=== PATIENT | female | born 1935 | race Caucasian/White ===

== ENCOUNTER 2017-11-06 19:10 | Inpatient (IN) | payer MEDICARE ==
[2017-11-06] VITALS (8 sets, daily range): BP systolic 113–153; BP diastolic 61–97
[~2017-11-06] VITALS: Ht 165.1 cm; Wt 91.6 kg
[~2017-11-06 19:10] MED LIST: ASPIRIN EC81 MG PO; IBUPROFEN400 MG PO; PRILOSEC20 MG; ZOLOFT50 MG PO
[2017-11-06] MEDS: IPRATROPIUM BROMIDE 0.02% 2.5 ML NEB NEB SCH (19:20)
[2017-11-06] MEDS: ALBUTEROL SULF 0.083% NEB SOLN 3 ML NEB NEB SCH ×2 (19:20→23:25)
[2017-11-06] MEDS ORDERED: ALBUTEROL SULF 0.083% NEB SOLN 3 ML NEB ONE (19:25)
[2017-11-06] MEDS ORDERED: IPRATROPIUM BROMIDE 0.02% 2.5 ML NEB ONE (19:25)
[2017-11-06 19:36] LABS: BASOPHILS # (AUTO) 0.1 (0.0-0.1); BASOPHILS % 0.5 % (0.0-1.0); EOSINOPHILS # (AUTO) 0.2 (0.0-0.4); EOSINOPHILS % 1.7 % (0.0-6.0); HEMOGLOBIN 10.6 g/dL (12.0-16.0); LYMPHOCYTES # (AUTO) 1.1 (1.0-3.2); LYMPHOCYTES % 9.8 % (18.0-39.1); MEAN CORPUSCULAR HEMOGLOBIN 30.6 pg (28-32); MEAN CORPUSCULAR HGB CONC 33.1 g/dL (31-35); MEAN CORPUSCULAR VOLUME 92.5 fL (81-99); MONOCYTES # (AUTO) 0.9 (0.2-0.8); MONOCYTES % 7.8 % (4.4-11.3); NEUTROPHILS # (AUTO) 8.8 (2.1-6.9); NEUTROPHILS % 79.6 % (38.7-80.0); PLATELET COUNT 405 x10e3/uL (140-360); RED BLOOD COUNT 3.46 x10e6/uL (3.6-5.1); RED CELL DISTRIBUTION WIDTH 12.8 % (11.7-14.4)
[2017-11-06 19:55] LABS: ALANINE AMINOTRANSFERASE 20 IU/L (0-55); ALBUMIN 3.2 g/dL (3.5-5.0); ALBUMIN/GLOBULIN RATIO 0.7 (0.8-2.0); ALKALINE PHOSPHATASE 85 IU/L (40-150); ANION GAP 18.1 mmol/L (8-16); BLOOD UREA NITROGEN 6 mg/dL (7-26); BUN/CREATININE RATIO 8 (6-25); CALCIUM 9.9 mg/dL (8.4-10.2); CARBON DIOXIDE 21 mmol/L (22-29); CHLORIDE 95 mmol/L (98-107); CREATININE, SERUM 0.75 mg/dL (0.57-1.11); EST GLOMERULAR FILTRATION RATE > 60 ML/MIN (60-); GLUCOSE 108 mg/dL (74-118); POTASSIUM 3.1 mmol/L (3.5-5.1); SODIUM 131 mmol/L (136-145)
--- NOTE | 2017-11-06 20:03 | Diagnostic Imaging Report ---
EXAM: CHEST SINGLE (PORTABLE), AP 1 view INDICATION: Shortness of breath COMPARISON: None FINDINGS: LINES/TUBES: None LUNGS: Diffuse bilateral dense consolidations, most prominent in the right upper lung. PLEURA: No effusions or pneumothorax. HEART AND MEDIASTINUM: The heart is within normal size limits. Prominence of the bilateral martin could be due to lymphadenopathy or enlarged pulmonary vessels. BONES AND SOFT TISSUES: No acute findings. IMPRESSION: Findings most likely represent multifocal pneumonia, largest consolidation is in the right upper lung. Signed by: Dr. Deysi Riley M.D. on 11/06/2017 7:59 PM
[2017-11-06] MEDS ORDERED: CEFTRIAXONE SOD 1 GM VIAL IV SCH (20:15)
[2017-11-06 20:34] LABS: CREATINE KINASE MB 5.6 ng/mL (0-5.0)
[2017-11-06] MEDS ORDERED: HEPARIN SOD (PORCINE) 5,000 UNIT/ML VIAL IV ONE (20:45)
[2017-11-06] MEDS ORDERED: ASPIRIN 81 MG CHEW TAB PO ONE (20:45)
[2017-11-06 20:46] LABS: INR 1.37; PROTHROMBIN TIME 15.9 seconds (11.9-14.5)
[2017-11-06] MEDS ORDERED: ASPIRIN 81 MG CHEW TAB PO STA (20:48)
[2017-11-06 20:52] LABS: BILIRUBIN,URINE 1+ (NEGATIVE); CLARITY,URINE SL CLOUDY (CLEAR); COLOR,URINE ORANGE (YELLOW); KETONES,URINE 1+ (NEGATIVE); LEUKOCYTE ESTERASE ,URINE NEGATIVE (NEGATIVE); NITRITE,URINE NEGATIVE (NEGATIVE); PROTEIN,URINE DIPSTICK 2+ (NEGATIVE); URINE UROBILINOGEN 0.2 mg/dL (0.2 - 1)
[2017-11-06] MEDS: AZITHROMYCIN 500MG/NS 250 ML 250 ML IV SCH (20:57)
[2017-11-06] MEDS: PIPER-TAZ 3.375 GM 50 ML IV SCH (20:57)
[2017-11-06] MEDS ORDERED: KCL 20MEQ/.9 SOD CHL 1,000 ML IV ONE (21:00)
[2017-11-06 21:04] LABS: BACTERIA,URINE MODERATE /HPF; WBC,URINE (MAN) 0-5 /HPF (0-5)
[2017-11-06] MEDS: HEPARIN 25,000U/0.45% NS 250ML 800 UNIT in SODIUM CHLORIDE 0.9% 250ML 0 ML IV SCH (21:13)
[2017-11-07] VITALS (102 sets, daily range): BP systolic 72–181; BP diastolic 41–157
[2017-11-07] MEDS: IPRATROPIUM BROMIDE 0.02% 2.5 ML NEB NEB SCH ×4 (01:35→19:15)
[2017-11-07] MEDS: ALBUTEROL SULF 0.083% NEB SOLN 3 ML NEB NEB SCH ×7 (01:35→23:15)
[2017-11-07 03:20] LABS: BASOPHILS % 0.1 % (0.0-1.0); LYMPHOCYTES # (AUTO) 0.2 (1.0-3.2); LYMPHOCYTES % 2.4 % (18.0-39.1); MEAN CORPUSCULAR HEMOGLOBIN 31.2 pg (28-32); MEAN CORPUSCULAR HGB CONC 33.3 g/dL (31-35); MEAN CORPUSCULAR VOLUME 93.5 fL (81-99); MONOCYTES # (AUTO) 0.2 (0.2-0.8); MONOCYTES % 2.1 % (4.4-11.3); NEUTROPHILS # (AUTO) 8.3 (2.1-6.9); NEUTROPHILS % 94.7 % (38.7-80.0); PLATELET COUNT 311 x10e3/uL (140-360); RED BLOOD COUNT 3.21 x10e6/uL (3.6-5.1); RED CELL DISTRIBUTION WIDTH 12.8 % (11.7-14.4)
[2017-11-07 03:44] LABS: CREATINE KINASE MB 6.5 ng/mL (0-5.0)
[2017-11-07 04:00] LABS: ALANINE AMINOTRANSFERASE 19 IU/L (0-55); ALBUMIN 2.8 g/dL (3.5-5.0); ALBUMIN/GLOBULIN RATIO 0.7 (0.8-2.0); ALKALINE PHOSPHATASE 75 IU/L (40-150); ANION GAP 16.5 mmol/L (8-16); BLOOD UREA NITROGEN 8 mg/dL (7-26); BUN/CREATININE RATIO 10 (6-25); CALCIUM 9.3 mg/dL (8.4-10.2); CARBON DIOXIDE 20 mmol/L (22-29); CHLORIDE 99 mmol/L (98-107); EST GLOMERULAR FILTRATION RATE > 60 ML/MIN (60-); GLUCOSE 176 mg/dL (74-118); POTASSIUM 3.5 mmol/L (3.5-5.1); SODIUM 132 mmol/L (136-145)
[2017-11-07] MEDS: PIPER-TAZ 3.375 GM 50 ML IV SCH ×3 (05:38→21:15)
[2017-11-07] MEDS ORDERED: ACETAMINOPHEN 1000 MG/100 ML IV PRN (05:45)
[2017-11-07] MEDS ORDERED: MIDAZOLAM HCL 5 MG/ML VIAL ONE (06:46)
[2017-11-07] MEDS ORDERED: SODIUM CHLORIDE 0.9% 50ML 50 ML ONE (06:47)
[2017-11-07] MEDS: MIDAZOLAM HCL 25 MG in SODIUM CHLORIDE 0.9% 50ML 45 ML IV PRN ×2 (07:04→08:39)
--- NOTE | 2017-11-07 07:17 | Diagnostic Imaging Report ---
PROCEDURE:CHEST SINGLE (PORTABLE) TECHNIQUE:Portable AP chest INDICATION:Intubation COMPARISON:Patients [facility], , CHEST SINGLE (PORTABLE), 11/06/2017, 19:38. FINDINGS: See conclusion. CONCLUSION: 1. Endotracheal tube tip about 4.7 cm from the linda. 2. Progressive diffuse air space opacities in keeping with worsening pneumonia and/or pulmonary edema. 3. A sizable pleural effusion. 4. Stable cardiomediastinal silhouette, with normal heart size for technique. Dictated by: Ernie Paz M.D. on 11/07/2017 at 7:20 Electronically approved by: Ernie Paz M.D. on 11/07/2017 at 7:20
[2017-11-07] MEDS: FENTANYL CITRATE INJ 2,000 MCG in SODIUM CHLORIDE 0.9% 250ML 210 ML IV PRN (08:00)
[2017-11-07] MEDS: DEXMEDETOMIDINE HCL 200 MCG in SODIUM CHLORIDE 0.9% 50ML 48 ML IV PRN (08:00)
[2017-11-07 08:27] LABS: ABG HCO3 17 mmol/L (23-28); ABG PCO2 33 mmHg (41-51); ABG PH 7.33 (7.31-7.41); ABG PO2 200 mmHg (80-105)
[2017-11-07] MEDS ORDERED: ellipta (08:58)
[2017-11-07] MEDS ORDERED: CYMBALTA30 MG PO (08:58)
[2017-11-07] MEDS ORDERED: FOLIC ACID1 MG PO (08:58)
[2017-11-07] MEDS ORDERED: LOSARTAN POTASS25 MG PO (08:58)
[2017-11-07] MEDS ORDERED: MIRTAZAPINE15 MG PO (08:58)
[2017-11-07] MEDS ORDERED: GABAPENTIN300 MG PO (08:58)
[2017-11-07] MEDS ORDERED: PROAIR HFA INH8.5 GM IH (08:58)
[2017-11-07] MEDS ORDERED: HYDROXYCHLOROQ200 MG PO (08:58)
[2017-11-07] MEDS ORDERED: FLUOXETINE HCL20 MG PO (08:58)
[2017-11-07] MEDS ORDERED: TIZANIDINE HCL4 MG PO (08:58)
--- NOTE | 2017-11-07 09:03 | History and Physical ---
Patient of Dr. Davenport and Dr. Rose. Recently apparently transferring from Dr. Fuentes, but no new primary doctor. She has not yet seen one. She has a history of asthma. She has been ill for 7 days prior to admission according to her daughter. She has had a cough and increasing shortness of breath. Cough has been productive. This morning she had progressive respiratory failure with tachypnea and unable to tolerate BiPAP and was intubated. She has had hip surgery and knee surgery. Nonsmoker except for occasional cigarettes. 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 Born in [place]. ALLERGIES: NO KNOWN ALLERGIES. HOME MEDICATIONS: Have included aspirin, Motrin, Prilosec, and Zoloft. She is currently intubation for respiratory failure. She has a history of asthma and was using an MDI according to the daughter, though this is not on her home med list. She has seen Dr. Rose in the past for past shortness of breath, and told that her heart was normal. She has history of recent diarrhea, but no vomiting or aspiration. History of rheumatoid arthritis, history of peripheral neuropathy. Lives with her . Recently moved to her son's house apparently. PHYSICAL EXAMINATION GENERAL: A healthy white female intubated, sedated. VITALS: Temperature 96.7, pulse 91, respirations 20, blood pressure 105/61. HEENT: Head is normocephalic and atraumatic. NECK: Trachea midline. LUNGS: Bilateral rales and rhonchi. HEART: Regular rhythm. ABDOMEN: Nontender. EXTREMITIES: Arthritic changes noted and peripheral neuropathy. IMPRESSION: Severe CAP versus pulmonary edema. Evidence of myocardial infarction. Cardiology opinion is pending. Continue mechanical ventilator support. Empiric antibiotics. She is currently anticoagulated. Prophylactic Pepcid. White count on admission was 11.05 and platelets 405,000. Shift to the left. CPK-MB was 6.5. Troponin 0.888. Glucose 176. There is no history of diabetes. Job#: [id number] [place]
--- NOTE | 2017-11-07 10:25 | Diagnostic Imaging Report ---
PROCEDURE:CHEST XRAY LINE PLACEMENT TECHNIQUE:Portable AP chest INDICATION:Line placement COMPARISON:Patients [facility], DX, CHEST SINGLE (PORTABLE), 11/07/2017, 6:39. FINDINGS: See conclusion. CONCLUSION: 1. Right PICC terminating at the mid SVC. 2. Findings otherwise unchanged from 6:39 AM. Dictated by: Ernie Paz M.D. on 11/07/2017 at 10:28 Electronically approved by: Ernie Paz M.D. on 11/07/2017 at 10:28
[2017-11-07] MEDS: HYDROCORTISONE SOD SUCCINATE 100 MG VIAL IV SCH ×2 (11:11→18:49)
[2017-11-07] MEDS: FAMOTIDINE 20 MG/2 ML VIAL IV SCH ×2 (11:11→17:00)
[2017-11-07] MEDS: GABAPENTIN 300 MG CAP NG SCH ×2 (11:11→17:00)
[2017-11-07 12:27] LABS: CREATINE KINASE MB 9.2 ng/mL (0-5.0)
[2017-11-07 13:49] LABS: ABG PH 7.38 (7.31-7.41)
[2017-11-07 13:50] LABS: ABG HCO3 19 mmol/L (23-28); ABG PCO2 32 mmHg (41-51); ABG PO2 80 mmHg (80-105)
--- NOTE | 2017-11-07 13:57 | Consultation ---
DATE OF CONSULTATION: November 07, 2017 CARDIOLOGY CONSULT REQUESTING PHYSICIAN: Dr. Davenport. REASON FOR CONSULTATION: Elevated troponin. HISTORY OF PRESENT ILLNESS: This is an 82-year-old woman with history of asthma and rheumatoid arthritis who was admitted with worsening shortness of breath. All history is obtained from family and EMR as patient is currently intubated and sedated. Per the family, patient has been short of breath for approximately a week. This was associated with cough however the family indicates the patient was downplaying her symptoms. The family reports the patient has had worsening shortness of breath and cough for approximately the last week. They do not report any chest pain, palpitations or lightheadedness. There were no sick contacts noted. However the family does indicate patient has chronic lower extremity edema and they believe she may have had orthopnea and PND recently as well. Due to shortness of breath, EMS was called yesterday. She arrived to the ER on CPAP and was given 125 mg of Solu-Medrol. Due to worsening respiratory distress, the patient was intubated early this morning. Patient was noted to have elevated troponin in the ER for which cardiology is consulted. REVIEW OF SYSTEMS: Unable to obtain secondary to intubation and sedation. PAST MEDICAL HISTORY 1. Asthma. 2. Rheumatoid arthritis. 3. COPD. PAST SURGICAL HISTORY 1. Hip surgery. 2. Knee surgery. 3. Bladder suspension. ALLERGIES: PLEASE SEE EMR. MEDICATIONS: Please see medication reconciliation. SOCIAL HISTORY: No tobacco, alcohol, or illicit drugs. FAMILY HISTORY: Noncontributory to current illness. PHYSICAL EXAMINATION VITAL SIGNS: Temperature 96.7 degrees, pulse 83, respiratory rate 21, blood pressure 92/57. Oxygen saturation 97% on mechanical ventilation. GENERAL: Well-developed, well-nourished woman. No acute distress. Intubated and sedated. HEENT: Normocephalic, atraumatic. NECK: Supple. No thyromegaly or cervical lymphadenopathy. No carotid bruits. LUNGS: Clear to auscultation bilaterally. No wheeze or crackles. CARDIOVASCULAR: Normal rate, regular rhythm. No murmur. Normal S1, S2. ABDOMEN: Soft, nontender. EXTREMITIES: No edema. NEURO: Unable to assess secondary to sedation. LABS: WBC 8.72, hemoglobin 10, hematocrit 30, platelets 311. Sodium 132, potassium 3.5, chloride 99, CO2 20, BUN 8, creatinine 0.8. Troponin 1.707. CHEST X-RAY: Progressive diffuse airspace opacities in keeping with worsening pneumonia and/or pulmonary edema. Sizeable pleural effusion. Stable cardiomediastinal silhouette with normal heart size for technique. EKG: Sinus tachycardia with PACs and left bundle branch block. IMPRESSION 1. Acute respiratory failure currently on mechanical ventilation. 2. Community-acquired pneumonia versus pulmonary edema. 3. Elevated troponin. 4. History of rheumatoid arthritis. RECOMMENDATIONS: Trend cardiac enzymes. Continue heparin. Add aspirin. We will obtain an echocardiogram. Although patient had a normal nuclear stress test January of last year, given elevated troponin, she will need ischemic evaluation once she has recovered from her current illness. Given elevated BNP suspect there may be a component of volume overload explaining patient's respiratory symptoms. However, patient is currently hypotensive. If blood pressure is stable we can attempt trial of diuretics at that time. Thank you for this consult. We will continue to follow. Job#: [id number] DARLENE
[2017-11-07] MEDS ORDERED: ETOMIDATE 2 MG/ML 10 ML INJ IV ONE (17:41)
[2017-11-07] MEDS ORDERED: SUCCINYLCHOLINE CHLORIDE 20 MG/ML 10ML VIAL ONE (17:41)
[2017-11-07] MEDS: AZITHROMYCIN 500MG/NS 250 ML 250 ML IV SCH (21:15)
[2017-11-07] MEDS: HEPARIN 25,000U/0.45% NS 250ML 800 UNIT in SODIUM CHLORIDE 0.9% 250ML 0 ML IV SCH (23:03)
[2017-11-08] VITALS (95 sets, daily range): BP systolic 67–122; BP diastolic 36–89
[2017-11-08] MEDS ORDERED: SODIUM CHLORIDE 0.9% 1000ML 1,000 ML ONE (01:20)
[2017-11-08] MEDS: ALBUTEROL SULF 0.083% NEB SOLN 3 ML NEB NEB SCH ×5 (02:35→18:40)
[2017-11-08] MEDS: IPRATROPIUM BROMIDE 0.02% 2.5 ML NEB NEB SCH ×4 (02:35→18:40)
[2017-11-08] MEDS: HYDROCORTISONE SOD SUCCINATE 100 MG VIAL IV SCH ×3 (03:38→17:25)
[2017-11-08 03:44] LABS: BASOPHILS % 0.1 % (0.0-1.0); HEMATOCRIT 24.8 % (34.2-44.1); HEMOGLOBIN 8.1 g/dL (12.0-16.0); LYMPHOCYTES # (AUTO) 0.6 (1.0-3.2); MEAN CORPUSCULAR HEMOGLOBIN 30.9 pg (28-32); MEAN CORPUSCULAR HGB CONC 32.7 g/dL (31-35); MEAN CORPUSCULAR VOLUME 94.7 fL (81-99); MONOCYTES # (AUTO) 0.6 (0.2-0.8); MONOCYTES % 4.8 % (4.4-11.3); NEUTROPHILS # (AUTO) 10.7 (2.1-6.9); NEUTROPHILS % 89.3 % (38.7-80.0); PLATELET COUNT 265 x10e3/uL (140-360); RED BLOOD COUNT 2.62 x10e6/uL (3.6-5.1); RED CELL DISTRIBUTION WIDTH 13.1 % (11.7-14.4)
[2017-11-08 04:16] LABS: ANION GAP 14.3 mmol/L (8-16); BLOOD UREA NITROGEN 21 mg/dL (7-26); BUN/CREATININE RATIO 25 (6-25); CALCIUM 8.4 mg/dL (8.4-10.2); CARBON DIOXIDE 19 mmol/L (22-29); CHLORIDE 104 mmol/L (98-107); CREATININE, SERUM 0.85 mg/dL (0.57-1.11); EST GLOMERULAR FILTRATION RATE > 60 ML/MIN (60-); GLUCOSE 114 mg/dL (74-118); POTASSIUM 3.3 mmol/L (3.5-5.1); SODIUM 134 mmol/L (136-145)
[2017-11-08] MEDS: PIPER-TAZ 3.375 GM 50 ML IV SCH ×3 (05:39→22:00)
[2017-11-08] MEDS ORDERED: SODIUM CHLORIDE 0.9% 250ML 250 ML ONE (05:44)
--- NOTE | 2017-11-08 06:39 | Diagnostic Imaging Report ---
CHEST SINGLE (PORTABLE), 11/08/2017 7:00 AM Technique: CHEST SINGLE (PORTABLE) Comparison: Previous day Clinical history: Pneumonia Findings: See Impression Impression: 1. Lines/Tubes: Stable ET tube 2.9 cm above the linda, right PICC near the cavoatrial junction. Newly visualized subdiaphragmatic NG tube. 2. Stable bilateral pulmonary opacities in keeping with history of pneumonia. Possible underlying effusions. Signed by: Dr Kathrine Kim MD on 11/08/2017 6:35 AM
[2017-11-08 09:23] LABS: CREATINE KINASE MB 6.2 ng/mL (0-5.0)
[2017-11-08 09:33] LABS: ABG HCO3 18 mmol/L (23-28); ABG PCO2 30 mmHg (41-51); ABG PH 7.39 (7.31-7.41); ABG PO2 71 mmHg (80-105)
[2017-11-08] MEDS: GABAPENTIN 300 MG CAP NG SCH ×2 (10:20→17:25)
[2017-11-08] MEDS: ASPIRIN 81 MG ENTERIC COATED PO SCH (10:20)
[2017-11-08] MEDS: MIDAZOLAM HCL 25 MG in SODIUM CHLORIDE 0.9% 50ML 45 ML IV PRN (10:20)
[2017-11-08] MEDS: FAMOTIDINE 20 MG/2 ML VIAL IV SCH ×2 (10:20→17:25)
--- NOTE | 2017-11-08 13:24 | Progress Note ---
DATE: November 08, 2017 CARDIOLOGY PROGRESS NOTE SUBJECTIVE: The patient is awake on sedation. She remains intubated. Denies chest pain or shortness of breath. OBJECTIVE VITAL SIGNS: Temperature 97.2 degrees, pulse 94, respiratory rate 26, blood pressure 110/55. Oxygen saturation 94% on mechanical ventilation. GENERAL: Well-developed, well-nourished woman. No acute distress. LUNGS: Clear to auscultation bilaterally. No wheeze or crackles. CARDIOVASCULAR: Normal rate, regular rhythm. No murmur. Normal S1, S2. ABDOMEN: Soft, nontender. EXTREMITIES: No edema. CARDIAC MEDICATIONS 1. Aspirin 81 mg p.o. daily. 2. Heparin drip. 3. Lasix 20 mg IV. 4. Baby aspirin 81 mg p.o. daily. LABS: WBC 11.93, hemoglobin 8.1, hematocrit 24.8, platelets 265. Sodium 134, potassium 3.3, chloride 104, CO2 19, BUN 21, creatinine 0.85. Troponin 0.617. TELEMETRY: Normal sinus rhythm. IMPRESSION 1. Acute respiratory failure currently on mechanical ventilation. 2. Community-acquired pneumonia versus pulmonary edema. 3. Rit-SG-anqyeqmsk myocardial infarction. 4. History of rheumatoid arthritis. RECOMMENDATIONS: Continue current cardiac medications. Echocardiogram has been done and is pending. She will need ischemic evaluation once she has recovered from her current illness and after she has been extubated. Trial of low-dose diuretics as the blood pressure has been stable. Antibiotics per primary service. Thank you for this consult. We will continue to follow. Job#: [id number]
[2017-11-08] MEDS ORDERED: SUCCINYLCHOLINE CHLORIDE 20 MG/ML 10ML VIAL ONE (15:26)
[2017-11-08] MEDS: FUROSEMIDE INJ 10 MG/ML 2 ML VIAL IV SCH (17:02)
[2017-11-08] MEDS: AZITHROMYCIN 500MG/NS 250 ML 250 ML IV SCH (20:15)
[2017-11-08] MEDS: HEPARIN 25,000U/0.45% NS 250ML 800 UNIT in SODIUM CHLORIDE 0.9% 250ML 0 ML IV SCH (20:45)
[2017-11-09] VITALS (95 sets, daily range): BP systolic 78–126; BP diastolic 42–79
[2017-11-09] MEDS: ALBUTEROL SULF 0.083% NEB SOLN 3 ML NEB NEB SCH ×5 (01:50→18:50)
[2017-11-09] MEDS: IPRATROPIUM BROMIDE 0.02% 2.5 ML NEB NEB SCH ×4 (01:50→18:50)
[2017-11-09] MEDS: HYDROCORTISONE SOD SUCCINATE 100 MG VIAL IV SCH ×3 (02:30→17:46)
[2017-11-09 03:00] LABS: ABG PCO2 39 mmHg (41-51); ABG PH 7.31 (7.31-7.41)
[2017-11-09 03:01] LABS: ABG HCO3 20 mmol/L (23-28); ABG PO2 45 mmHg (80-105)
[2017-11-09] MEDS ORDERED: ACETAMINOPHEN 1000 MG/100 ML IV PRN (05:00)
[2017-11-09] MEDS: PIPER-TAZ 3.375 GM 50 ML IV SCH ×3 (06:02→22:15)
[2017-11-09 06:07] LABS: BASOPHILS % 0.2 % (0.0-1.0); EOSINOPHILS % 0.3 % (0.0-6.0); HEMATOCRIT 23.4 % (34.2-44.1); HEMOGLOBIN 7.4 g/dL (12.0-16.0); LYMPHOCYTES # (AUTO) 0.2 (1.0-3.2); LYMPHOCYTES % 2.1 % (18.0-39.1); MEAN CORPUSCULAR HEMOGLOBIN 30.5 pg (28-32); MEAN CORPUSCULAR HGB CONC 31.6 g/dL (31-35); MEAN CORPUSCULAR VOLUME 96.3 fL (81-99); MONOCYTES # (AUTO) 0.3 (0.2-0.8); MONOCYTES % 2.7 % (4.4-11.3); NEUTROPHILS # (AUTO) 10.4 (2.1-6.9); NEUTROPHILS % 93.5 % (38.7-80.0); PLATELET COUNT 254 x10e3/uL (140-360); RED BLOOD COUNT 2.43 x10e6/uL (3.6-5.1); RED CELL DISTRIBUTION WIDTH 13.3 % (11.7-14.4)
--- NOTE | 2017-11-09 06:43 | Diagnostic Imaging Report ---
CHEST SINGLE (PORTABLE), 11/09/2017 5:00 AM Technique: CHEST SINGLE (PORTABLE) Comparison: Previous day Clinical history: Intubated Findings: See Impression Impression: 1. Lines/Tubes: Stable ET tube 3.3 cm above the linda, right PICC near the cavoatrial junction and subdiaphragmatic NG tube. 2. Stable extensive bilateral pulmonary opacities in keeping with history of pneumonia. No significant effusion appreciated. Signed by: Dr Kathrine Kim MD on 11/09/2017 6:39 AM
[2017-11-09 06:49] LABS: ALANINE AMINOTRANSFERASE 32 IU/L (0-55); ALBUMIN 2.3 g/dL (3.5-5.0); ALBUMIN/GLOBULIN RATIO 0.6 (0.8-2.0); ALKALINE PHOSPHATASE 72 IU/L (40-150); ANION GAP 12.9 mmol/L (8-16); BLOOD UREA NITROGEN 22 mg/dL (7-26); BUN/CREATININE RATIO 26 (6-25); CALCIUM 8.7 mg/dL (8.4-10.2); CARBON DIOXIDE 21 mmol/L (22-29); CHLORIDE 110 mmol/L (98-107); CREATININE, SERUM 0.85 mg/dL (0.57-1.11); EST GLOMERULAR FILTRATION RATE > 60 ML/MIN (60-); GLUCOSE 110 mg/dL (74-118); SODIUM 141 mmol/L (136-145)
[2017-11-09 06:51] LABS: POTASSIUM 2.9 mmol/L (3.5-5.1)
[2017-11-09 08:20] LABS: HYPOCHROMASIA SLIGHT; LYMPHOCYTES % (MANUAL) 2 % (19-48); MONOCYTES % (MANUAL) 1 % (3.4-9.0); NEUTROPHILS % (MANUAL) 97 % (40-74); PLATELET ESTIMATE ADEQUATE; PLATELET MORPHOLOGY COMMENT NORMAL; RBC MORPHOLOGY COMMENT NORMAL
[2017-11-09] MEDS ORDERED: POTASSIUM CHLORIDE 20 MEQ TAB CR PO PRN (09:00)
[2017-11-09] MEDS: ASPIRIN 81 MG ENTERIC COATED PO SCH (09:00)
[2017-11-09] MEDS: GABAPENTIN 300 MG CAP NG SCH ×2 (09:01→17:45)
[2017-11-09] MEDS: FAMOTIDINE 20 MG/2 ML VIAL IV SCH ×2 (09:01→17:45)
[2017-11-09] MEDS: FUROSEMIDE INJ 10 MG/ML 2 ML VIAL IV SCH ×2 (09:01→17:00)
[2017-11-09] MEDS: DEXTROSE 5%/0.9% SOD CHL 1,000 ML IV SCH ×2 (09:07→21:55)
[2017-11-09] MEDS: MIDAZOLAM HCL 25 MG in SODIUM CHLORIDE 0.9% 50ML 45 ML IV PRN ×3 (10:17→23:25)
[2017-11-09] MEDS: POTASSIUM CHLORIDE 20MEQ/15ML UDC NG PRN (10:54)
[2017-11-09] MEDS: VANCOMYCIN 1GM/NS 250 ML 250 ML IV SCH ×2 (11:34→23:07)
[2017-11-09] MEDS ORDERED: ALBUTEROL SULF 0.083% NEB SOLN 3 ML NEB NEB SCH (12:00)
--- NOTE | 2017-11-09 12:32 | Consultation ---
DATE OF CONSULTATION: REASON FOR CONSULTATION: Pneumonia. Thank you so much for asking me to see this patient. This patient, who is a very pleasant, unfortunate, 82-year-old white female with history of rheumatoid arthritis, osteoarthritis, severe pain and neuropathy, was taking several pain medications and Neurontin, but she also takes some Dilaudid which was given to her hospice because of the pain. The patient apparently has been sick for a week with some cough, not feeling well, severe pain. She was moved a few days ago to one of her children because they were concerned about her. When they moved her, apparently the move was hard. She became really short of breath and not feeling well. Her cough was increasing. Her shortness of breath was increasing, so she was brought to the emergency room. In emergency room, she was very short of breath and had to be intubated. She is currently in the intensive care unit. The patient does not really provide any meaningful information, but her daughter who is at bedside is very concerned and is knowledgeable. She is telling me she has history of severe neuropathy and severe arthritis. Her pain apparently has been getting progressively worse. Recently she has been seeing a neurologist. She also has a history of asthma and COPD. PAST SURGICAL HISTORY: Bilateral knee replacement, total hip replacement, bladder suspension. ALLERGIES: NKA. SOCIAL HISTORY: There is no smoking, drug abuse or alcohol abuse. FAMILY HISTORY: Significant for hypertension. REVIEW OF SYSTEMS: Could not be obtained. She is intubated. The patient was admitted and started on antibiotic. Laboratory data reviewed. Blood cultures show gram-positive cocci. Her sputum is showing yeast. Her white count on admission was 11.05, today 11.13. Hemoglobin on admission 10.6, today 7.4. Her platelets are 254. Her sodium is 141, potassium 2.9, creatinine 0.85. Liver enzymes are within normal limits. PHYSICAL EXAMINATION GENERAL: She is currently intubated sedated. VITALS: Stable, currently afebrile. HEENT: Normocephalic. Not icteric. NECK: Cannot be assessed. CHEST: A few rhonchi bilaterally. COR: S1 and S2. No S3, S4 or murmur. ABDOMEN: Soft. Bowel sounds present. No tenderness. EXTREMITIES: No edema. LABORATORY DATA: Reviewed. Her blood culture is showing gram-positive cocci. She is currently, as mentioned above, on azithromycin and Zosyn. IMPRESSION: Pneumonia, probably aspiration, and sepsis secondary to pneumonia, community acquired, present on admission in a patient who has rheumatoid arthritis, asthma, and obesity. Agree with current choice of antibiotic. Will follow with you. Job#: [id number]
--- NOTE | 2017-11-09 13:29 | Diagnostic Imaging Report ---
PROCEDURE: A single AP view of the chest. COMPARISON: Chest radiograph 11/09/2017 at 0607 hours INDICATIONS: ETT PLACEMENT FINDINGS: Lines/tubes: * Endotracheal tube tip projects approximately 2.6 cm above the linda. * NG/OG tube courses below the diaphragm, extending out of the field of view * Right upper extremity PICC tip overlies the upper SVC. Lungs: Extensive bilateral patchy opacities in keeping with reported history of pneumonia. Pleura: Trace probable pleural effusions. No pneumothorax. Heart and mediastinum: The heart and the mediastinum are unremarkable. Bones: No acute bony abnormality. Upper abdomen: No free air under the diaphragm. A 0.9 cm round density projects over the right upper quadrant, possibly a gallstone. IMPRESSION: 1. Lines and tubes as above. 2. Stable extensive bilateral pulmonary opacities in keeping with reported history of multifocal pneumonia. Dictated by: Rodrigo Shrestha M.D. on 11/09/2017 at 13:33 Electronically approved by: Rodrigo Shrestha M.D. on 11/09/2017 at 13:33
--- NOTE | 2017-11-09 15:49 | Progress Note ---
DATE: November 09, 2017 CARDIOLOGY PROGRESS NOTE SUBJECTIVE: The patient remains intubated and sedated. OBJECTIVE VITAL SIGNS: Temperature 100.6 degrees, pulse 80, respiratory rate 26, blood pressure 97/54, oxygen saturation 86% on mechanical ventilation. GENERAL: Well-developed, well-nourished woman. No acute distress. LUNGS: Clear to auscultation bilaterally. No wheezes or crackles. CARDIOVASCULAR: Normal rate, regular rhythm. No murmur. Normal S1, S2. ABDOMEN: Soft, nontender. EXTREMITIES: No edema. CARDIAC MEDICATIONS 1. Furosemide 20 mg IV b.i.d. 2. Aspirin 81 mg p.o. daily. LABS: WBC 11.13, hemoglobin 7.4, hematocrit 23.4, platelets 254,000, sodium 141, potassium 2.9, chloride 110, CO2 of 21, BUN 22, creatinine 0.85. Chest x-ray: Lines and tubes as above, stable, extensive bilateral pulmonary passages in keeping with reported history of multifocal pneumonia. TELEMETRY: Normal sinus rhythm with PACs. IMPRESSION 1. Acute respiratory failure currently on mechanical ventilation. 2. Community-acquired pneumonia versus pulmonary edema. 3. Qgb-TH-mlufdvdci myocardial infarction. 4. History of rheumatoid arthritis. RECOMMENDATIONS: Continue current cardiac medications, attempting to keep the patient closer to euvolemic given her diastolic dysfunction. However, her urine output has been poor despite Lasix. Supportive care. Antibiotics per infectious disease. The patient will need ischemic evaluation once she has recovered from her current illness and has been extubated. Thank you for this consult. We will continue to follow. Job#: [id number]
--- NOTE | 2017-11-09 17:49 | Diagnostic Imaging Report ---
PROCEDURE: A single AP view of the chest. COMPARISON: Same day chest radiograph at 1311 hrs INDICATIONS: ETT ADJUSTED FINDINGS: Lines/tubes: * Endotracheal tube tip projects approximately 2.6 cm above the linda. * NG/OG tube courses below the diaphragm, extending out of the field of view * Right upper extremity PICC tip overlies the upper SVC/brachiocephalic confluence. Lungs: Extensive bilateral patchy opacities in keeping with reported history of pneumonia. Pleura: Trace probable pleural effusions. No pneumothorax. Heart and mediastinum: The heart and the mediastinum are unremarkable. Bones: No acute bony abnormality. Upper abdomen: No free air under the diaphragm. A 1 cm round density projects over the right upper quadrant, possibly a gallstone or calcified granuloma. IMPRESSION: 1. Lines and tubes as above. 2. Stable extensive bilateral pulmonary opacities in keeping with reported history of multifocal pneumonia. Dictated by: Rodrigo Shrestha M.D. on 11/09/2017 at 17:53 Electronically approved by: Rodrigo Shrestha M.D. on 11/09/2017 at 17:53
[2017-11-09] MEDS ORDERED: HEPARIN 25,000U/0.45% NS 250ML 250 ML ONE (17:54)
[2017-11-09] MEDS: HEPARIN 25,000U/0.45% NS 250ML 800 UNIT in SODIUM CHLORIDE 0.9% 250ML 0 ML IV SCH (18:18)
[2017-11-09] MEDS: AZITHROMYCIN 500MG/NS 250 ML 250 ML IV SCH (20:09)
[2017-11-09] MEDS: FENTANYL CITRATE INJ 2,000 MCG in SODIUM CHLORIDE 0.9% 250ML 210 ML IV PRN (21:00)
[2017-11-10] VITALS (81 sets, daily range): BP systolic 92–124; BP diastolic 44–70
[2017-11-10] MEDS: HYDROCORTISONE SOD SUCCINATE 100 MG VIAL IV SCH ×3 (02:02→17:06)
[2017-11-10] MEDS: ALBUTEROL SULF 0.083% NEB SOLN 3 ML NEB NEB SCH ×3 (02:15→19:00)
[2017-11-10] MEDS: IPRATROPIUM BROMIDE 0.02% 2.5 ML NEB NEB SCH ×3 (02:15→19:00)
[2017-11-10] MEDS: MIDAZOLAM HCL 25 MG in SODIUM CHLORIDE 0.9% 50ML 45 ML IV PRN ×5 (05:47→23:13)
[2017-11-10] MEDS: PIPER-TAZ 3.375 GM 50 ML IV SCH ×3 (05:47→23:12)
[2017-11-10 05:50] LABS: BASOPHILS % 0.3 % (0.0-1.0); EOSINOPHILS % 0.2 % (0.0-6.0); HEMATOCRIT 24.5 % (34.2-44.1); HEMOGLOBIN 7.6 g/dL (12.0-16.0); LYMPHOCYTES # (AUTO) 0.3 (1.0-3.2); LYMPHOCYTES % 2.5 % (18.0-39.1); MEAN CORPUSCULAR HEMOGLOBIN 30.9 pg (28-32); MEAN CORPUSCULAR VOLUME 99.6 fL (81-99); MONOCYTES # (AUTO) 0.2 (0.2-0.8); MONOCYTES % 2.2 % (4.4-11.3); NEUTROPHILS # (AUTO) 9.8 (2.1-6.9); NEUTROPHILS % 93.6 % (38.7-80.0); PLATELET COUNT 251 x10e3/uL (140-360); RED BLOOD COUNT 2.46 x10e6/uL (3.6-5.1); RED CELL DISTRIBUTION WIDTH 13.7 % (11.7-14.4)
[2017-11-10 06:10] LABS: ANION GAP 13.3 mmol/L (8-16); CREATININE, SERUM 0.9 mg/dL (0.57-1.11); POTASSIUM 3.3 mmol/L (3.5-5.1)
[2017-11-10] MEDS: POTASSIUM CHLORIDE 20MEQ/15ML UDC NG PRN (07:29)
[2017-11-10] MEDS: ASPIRIN 81 MG ENTERIC COATED PO SCH (07:51)
[2017-11-10] MEDS: FAMOTIDINE 20 MG/2 ML VIAL IV SCH ×2 (08:22→16:25)
[2017-11-10] MEDS: GABAPENTIN 300 MG CAP NG SCH ×3 (08:22→16:25)
[2017-11-10] MEDS: FUROSEMIDE INJ 10 MG/ML 2 ML VIAL IV SCH (08:22)
[2017-11-10] MEDS: FENTANYL CITRATE INJ 2,000 MCG in SODIUM CHLORIDE 0.9% 250ML 210 ML IV PRN (09:41)
[2017-11-10] MEDS: VANCOMYCIN 1GM/NS 250 ML 250 ML IV SCH ×2 (11:31→23:12)
[2017-11-10] MEDS: DEXTROSE 5%/0.9% SOD CHL 1,000 ML IV SCH (11:31)
[2017-11-10 13:11] LABS: ABG HCO3 20 mmol/L (23-28); ABG PCO2 47 mmHg (41-51); ABG PH 7.22 (7.31-7.41); ABG PO2 68 mmHg (80-105)
[2017-11-10] MEDS ORDERED: HEPARIN 25,000U/0.45% NS 250ML 250 ML ONE (13:44)
--- NOTE | 2017-11-10 13:54 | Progress Note ---
DATE: November 10, 2017 CARDIOLOGY PROGRESS NOTE SUBJECTIVE: The patient remains intubated and sedated. She is on mechanical ventilation with PEEP of 10 and FiO2 of 80%. OBJECTIVE VITAL SIGNS: Temperature 98.9 degrees, pulse 78, respiratory rate 17, blood pressure 113/52, oxygen saturation 94% on mechanical ventilation. GENERAL: Well-developed, well-nourished woman in no acute distress. LUNGS: Clear to auscultation bilaterally. No wheezes or crackles. CARDIOVASCULAR: Normal rate, regular rhythm. No murmur. Normal S1, S2. ABDOMEN: Soft, nontender. EXTREMITIES: No edema. CARDIAC MEDICATIONS 1. Furosemide 20 mg IV b.i.d. 2. Aspirin 81 mg p.o. daily. LABS: WBC 10.42, hemoglobin 7.6, hematocrit 24.5, platelets 251. Sodium 144, potassium 3.3, chloride 115, CO2 of 19, BUN 26, creatinine 0.9. Blood culture growing coagulase-negative staphylococcus, probable skin contaminant. CHEST X-RAY: Stable extensive bilateral pulmonary opacities in keeping with reported history of multifocal pneumonia. TELEMETRY: Normal sinus rhythm with PACs. IMPRESSION 1. Acute respiratory failure currently on mechanical ventilation. 2. Community-acquired pneumonia versus pulmonary edema. 3. Cea-KQ-xkvvwtaon myocardial infarction. 4. History of rheumatoid arthritis. RECOMMENDATIONS: Continue current cardiac medications, attempting to keep the patient euvolemic given her diastolic dysfunction. However, her urine output has been poor. We will increase Lasix. Antibiotics per infectious disease. Ventilator management per pulmonary. Continue supportive care. The patient will need ischemic evaluation once she has recovered from her current illness and has been extubated. Thank you for this consult. We will continue to follow. Job#: [id number]
--- NOTE | 2017-11-10 14:40 | Diagnostic Imaging Report ---
PROCEDURE: CT scan of the chest WITH intravenous contrast, using standard protocol. TECHNIQUE: The chest was scanned utilizing a multidetector helical scanner from the lung apex through the level of the adrenal glands after the IV administration of 62 cc of Isovue 370. Coronal and sagittal multiplanar reformations were obtained. COMPARISON: None. INDICATIONS: Pulmonary embolism FINDINGS: Lines/tubes: Endotracheal tube in place, with distal tip projecting approximately 2.9 cm above the linda. Enteric tube is partially visualized in the stomach. Right-sided PICC line in place, with distal tip in the mid-SVC. Lungs and Airways: No filling defects in the main, right or left pulmonary arteries to their segmental level to suggest pulmonary embolism. Marked diffuse groundglass opacities involving the greater portion of the upper and lower lobes and right middle lobe. Interlobular septal thickening predominantly noted in the apices (series 3, image 21). Scattered areas of lucent parenchyma with decreased caliber of the vessels compared to areas of groundglass (for example series 3, image 27, 47, 56). No consolidation. Mild compressive atelectasis of the right lower lobe. Pleura: Small right pleural effusion. Heart and mediastinum: There are is unremarkable. Mild cardiomegaly. Aorta is non-aneurysmal. Main pulmonary artery is enlarged, measuring 3.2 cm. Atherosclerotic calcification of the aortic valves, coronary arteries (particularly the LAD) and thoracic aorta (predominantly at the arch). Lymph nodes: Borderline enlarged right superior paratracheal lymph node (series 2 image 32), which measures 1.0 cm in short axis. Enlarged right lower paratracheal lymph node, which measures 1.6 and meter in short axis (series 2, image 42). Mild enlarged subcarinal lymph node, which measures 1.2 cm in short axis (series 2, image 50). No other enlarged mediastinal, or any hilar or axillary adenopathy. Abdomen: Limited contrast-enhanced views of the upper abdomen show no abnormality within the visualized liver, or right kidney. The visualized portions of the adrenal glands are normal. Mild splenomegaly, which measures 13.1 cm in AP diameter. Bones: No acute bony abnormalities. No aggressive lytic lesion. Rightward curvature of the thoracic spine. Visualized soft tissues are grossly unremarkable. IMPRESSION: 1. no CT evidence of pulmonary embolism. 2. Marked diffuse groundglass opacities involving both lungs. In the acute setting, this may represent acute alveolar disease, such as ARDS or cardiogenic or noncardiogenic pulmonary edema (particularly given the interlobular septal thickening), hypersensitivity pneumonitis or infectious disease, predominantly atypical infections. In the chronic setting this may represent nonspecific interstitial pneumonitis. 3. Scattered areas of lucent parenchyma likely represent air-trapping secondary to small airways or vessel disease. 4. Small right pleural effusion with associated mild compressive atelectasis of the right lower lobe. 5. Mild cardiomegaly. 6. Mediastinal adenopathy, as described, likely reactive. 7. Mild splenomegaly. Paul Crane M.D. Dictated by: Paul Crane M.D. on 11/10/2017 at 14:44 Electronically approved by: Paul Crane M.D. on 11/10/2017 at 14:44
[2017-11-10] MEDS ORDERED: SODIUM CHLORIDE 0.9% 50ML 50 ML ONE (16:34)
[2017-11-10] MEDS ORDERED: IOPAMIDOL 370 MG/ML 200 ML INFUS..BTL INJ ONE (16:34)
[2017-11-10] MEDS ORDERED: FUROSEMIDE INJ 10 MG/ML 2 ML VIAL IV SCH (17:00)
[2017-11-10] MEDS ORDERED: CISATRACURIUM BESYLATE 100 MG in SODIUM CHLORIDE 0.9% 100 ML 100 ML IV PRN (17:15)
[2017-11-10] MEDS ORDERED: SODIUM CHLORIDE 0.9% IV PRN (17:30)
[2017-11-10] MEDS ORDERED: CISATRACURIUM BESYLATE IV PRN (17:30)
[2017-11-10] MEDS: AZITHROMYCIN 500MG/NS 250 ML 250 ML IV SCH (20:38)
[2017-11-10] MEDS: HEPARIN 25,000U/0.45% NS 250ML 800 UNIT in SODIUM CHLORIDE 0.9% 250ML 0 ML IV SCH (21:02)
[2017-11-10] MEDS: DEXMEDETOMIDINE HCL 200 MCG in SODIUM CHLORIDE 0.9% 50ML 48 ML IV PRN (23:13)
[2017-11-11] VITALS (66 sets, daily range): BP systolic 82–122; BP diastolic 48–71
[2017-11-11] MEDS: FENTANYL CITRATE INJ 2,000 MCG in SODIUM CHLORIDE 0.9% 250ML 210 ML IV PRN ×3 (00:06→22:24)
[2017-11-11] MEDS: HYDROCORTISONE SOD SUCCINATE 100 MG VIAL IV SCH ×3 (02:09→17:51)
[2017-11-11] MEDS: DEXMEDETOMIDINE HCL 200 MCG in SODIUM CHLORIDE 0.9% 50ML 48 ML IV PRN ×5 (02:09→21:07)
[2017-11-11] MEDS: MIDAZOLAM HCL 25 MG in SODIUM CHLORIDE 0.9% 50ML 45 ML IV PRN ×5 (02:09→20:35)
[2017-11-11] MEDS: IPRATROPIUM BROMIDE 0.02% 2.5 ML NEB NEB SCH ×4 (02:45→18:38)
[2017-11-11] MEDS: ALBUTEROL SULF 0.083% NEB SOLN 3 ML NEB NEB SCH ×3 (02:45→18:38)
[2017-11-11] MEDS: DEXTROSE 5%/0.9% SOD CHL 1,000 ML IV SCH (05:07)
[2017-11-11 05:27] LABS: BASOPHILS % 0.1 % (0.0-1.0); EOSINOPHILS # (AUTO) 0.1 (0.0-0.4); EOSINOPHILS % 0.6 % (0.0-6.0); HEMOGLOBIN 7.3 g/dL (12.0-16.0); LYMPHOCYTES # (AUTO) 0.3 (1.0-3.2); LYMPHOCYTES % 2.8 % (18.0-39.1); MEAN CORPUSCULAR HEMOGLOBIN 30.5 pg (28-32); MEAN CORPUSCULAR HGB CONC 30.4 g/dL (31-35); MEAN CORPUSCULAR VOLUME 100.4 fL (81-99); MONOCYTES # (AUTO) 0.3 (0.2-0.8); MONOCYTES % 2.9 % (4.4-11.3); NEUTROPHILS # (AUTO) 8.7 (2.1-6.9); NEUTROPHILS % 92.1 % (38.7-80.0); PLATELET COUNT 247 x10e3/uL (140-360); RED BLOOD COUNT 2.39 x10e6/uL (3.6-5.1)
[2017-11-11 05:49] LABS: ANION GAP 13.5 mmol/L (8-16); CALCIUM 9.1 mg/dL (8.4-10.2); CREATININE, SERUM 1.06 mg/dL (0.57-1.11); POTASSIUM 3.5 mmol/L (3.5-5.1)
[2017-11-11] MEDS: PIPER-TAZ 3.375 GM 50 ML IV SCH ×3 (05:54→22:22)
[2017-11-11 07:41] LABS: BAND NEUTROPHILS % (MANUAL) 4 %; EOSINOPHILS % (MANUAL) 1 % (0-7); LYMPHOCYTES % (MANUAL) 5 % (19-48); NEUTROPHILS % (MANUAL) 90 % (40-74); SMUDGE CELLS FEW
[2017-11-11 07:43] LABS: HYPOCHROMASIA SLIGHT; PLATELET ESTIMATE ADEQUATE; PLATELET MORPHOLOGY COMMENT NORMAL; RBC MORPHOLOGY COMMENT NORMAL
[2017-11-11 07:44] LABS: ANISOCYTOSIS SLIGHT
--- NOTE | 2017-11-11 08:10 | Diagnostic Imaging Report ---
PROCEDURE: A single AP view of the chest. COMPARISON: Patients [facility], , CHEST SINGLE (PORTABLE), 11/09/2017, 16:56. INDICATIONS: COPD, ASTHMA FINDINGS: Lines/tubes: Unchanged position of right-sided PICC and NG tube. The endotracheal tube has been retracted but is still above the linda. Lungs: Diffuse pulmonary opacities are unchanged. Pleura: There is no pleural effusion or pneumothorax. Heart and mediastinum: The heart is enlarged. Bones: No acute bony abnormality. IMPRESSION: Unchanged pulmonary opacities. Brandin Mullen D.O. Dictated by: Brandin Mullen D.O. on 11/11/2017 at 8:14 Electronically approved by: Brandin Mullen D.O. on 11/11/2017 at 8:14
[2017-11-11] MEDS ORDERED: DEXTROSE 5%/0.45% SOD CHL 1,000 ML IV SCH (08:15)
[2017-11-11] MEDS: GABAPENTIN 300 MG CAP NG SCH ×2 (09:05→17:00)
[2017-11-11] MEDS: ASPIRIN 81 MG ENTERIC COATED PO SCH (09:05)
[2017-11-11] MEDS: FAMOTIDINE 20 MG/2 ML VIAL IV SCH ×2 (09:05→17:00)
[2017-11-11] MEDS: FUROSEMIDE INJ 10 MG/ML 2 ML VIAL IV SCH (09:07)
[2017-11-11] MEDS: VANCOMYCIN 1GM/NS 250 ML 250 ML IV SCH (10:54)
[2017-11-11 11:02] LABS: ABG HCO3 19 mmol/L (23-28); ABG PCO2 40 mmHg (41-51); ABG PH 7.28 (7.31-7.41); ABG PO2 78 mmHg (80-105)
[2017-11-11] MEDS: DEXTROSE 5% 1,000 ML IV SCH (11:37)
[2017-11-11] MEDS: SODIUM CHLORIDE 0.9% IV PRN ×2 (11:40→22:24)
[2017-11-11] MEDS: CISATRACURIUM BESYLATE IV PRN ×2 (11:40→22:24)
[2017-11-11 12:03] LABS: CHOL/HDL RATIO 3.8 (3.0-3.6)
--- NOTE | 2017-11-11 12:15 | Progress Note ---
DATE: November 11, 2017 SUBJECTIVE: The patient remains intubated and sedated. She is having problems with oxygenation. Continues to require FiO2 of 60% and a PEEP of 10. OBJECTIVE VITAL SIGNS: Temperature 98.6 degrees, pulse 76, respiratory rate 16, blood pressure 106/54. Oxygen saturation 93% on mechanical ventilation. GENERAL: Elderly woman, well-developed, well-nourished, no acute distress. LUNGS: Diminished breath sounds bilaterally. No wheezes or crackles. CARDIOVASCULAR: Normal rate, regular rhythm. No murmur. Normal S1 and S2. ABDOMEN: Soft and nontender. EXTREMITIES: No edema. CARDIAC MEDICATIONS 1. Furosemide 20 mg IV daily. 2. Aspirin 81 mg p.o. daily. 3. Heparin drip. LABS: WBC 9.39, hemoglobin 7.3, hematocrit 24, platelets 247. Sodium 146, potassium 3.5, chloride 116, CO2 20, BUN 31, creatinine 1.06. TELEMETRY: Normal sinus rhythm with PACs. CHEST X-RAY: Unchanged pulmonary opacities. IMPRESSION 1. Acute respiratory failure. Currently on mechanical ventilation. 2. Community-acquired pneumonia versus pulmonary edema. 3. Non-ST elevation myocardial infarction. 4. History of rheumatoid arthritis. RECOMMENDATIONS: Continue current cardiac medications. Patient was started on IV fluids due to poor urine output however she is now significantly positive despite IV diuretics. Monitor volume status closely. Antibiotics per infectious disease. Ventilatory management per pulmonary. Continue supportive care. Patient will need ischemic evaluation once she has recovered from her current illness and has been extubated. Thank you for this consult. We will continue to follow. Job#: [id number] DARLENE
[2017-11-11] MEDS: AZITHROMYCIN 500MG/NS 250 ML 250 ML IV SCH (20:41)
[2017-11-11] MEDS ORDERED: HEPARIN 25,000U/0.45% NS 250ML 250 ML ONE (20:43)
[2017-11-11] MEDS: HEPARIN 25,000U/0.45% NS 250ML 800 UNIT in SODIUM CHLORIDE 0.9% 250ML 0 ML IV SCH (21:05)
[2017-11-12] VITALS (63 sets, daily range): BP systolic 91–119; BP diastolic 41–76
--- NOTE | 2017-11-12 01:40 | Diagnostic Imaging Report ---
CHEST SINGLE (PORTABLE), 11/12/2017 12:30 AM Technique: CHEST SINGLE (PORTABLE) Comparison: Previous day Clinical history: Intubated Findings: See Impression Impression: 1. Lines/Tubes: Stable ET tube 3.3 cm above the linda, right PICC over the SVC and subdiaphragmatic NG tube. 2. Persistent extensive bilateral pulmonary opacities in keeping with history of pneumonia with or without underlying edema. 3. No significant effusion appreciated. Signed by: Dr Kathrine Kim MD on 11/12/2017 1:36 AM
[2017-11-12] MEDS: DEXMEDETOMIDINE HCL 200 MCG in SODIUM CHLORIDE 0.9% 50ML 48 ML IV PRN ×6 (02:00→22:28)
[2017-11-12] MEDS: DEXTROSE 5% 1,000 ML IV SCH (02:00)
[2017-11-12] MEDS: IPRATROPIUM BROMIDE 0.02% 2.5 ML NEB NEB SCH ×4 (02:10→19:00)
[2017-11-12] MEDS: ALBUTEROL SULF 0.083% NEB SOLN 3 ML NEB NEB SCH ×4 (02:10→19:00)
[2017-11-12] MEDS: HYDROCORTISONE SOD SUCCINATE 100 MG VIAL IV SCH ×2 (03:31→11:08)
[2017-11-12] MEDS: PIPER-TAZ 3.375 GM 50 ML IV SCH ×3 (05:14→22:26)
[2017-11-12 06:15] LABS: BASOPHILS % 0.2 % (0.0-1.0); EOSINOPHILS % 0.5 % (0.0-6.0); HEMATOCRIT 30.9 % (34.2-44.1); HEMOGLOBIN 9.4 g/dL (12.0-16.0); LYMPHOCYTES # (AUTO) 0.5 (1.0-3.2); LYMPHOCYTES % 5.3 % (18.0-39.1); MEAN CORPUSCULAR HEMOGLOBIN 30.5 pg (28-32); MEAN CORPUSCULAR HGB CONC 30.4 g/dL (31-35); MEAN CORPUSCULAR VOLUME 100.3 fL (81-99); MONOCYTES # (AUTO) 0.3 (0.2-0.8); MONOCYTES % 3.1 % (4.4-11.3); NEUTROPHILS # (AUTO) 7.7 (2.1-6.9); NEUTROPHILS % 89.2 % (38.7-80.0); PLATELET COUNT 266 x10e3/uL (140-360); RED BLOOD COUNT 3.08 x10e6/uL (3.6-5.1); RED CELL DISTRIBUTION WIDTH 14.3 % (11.7-14.4)
[2017-11-12] MEDS: CISATRACURIUM BESYLATE IV PRN ×3 (06:27→22:28)
[2017-11-12] MEDS: SODIUM CHLORIDE 0.9% IV PRN ×3 (06:27→22:28)
[2017-11-12] MEDS: MIDAZOLAM HCL 25 MG in SODIUM CHLORIDE 0.9% 50ML 45 ML IV PRN ×6 (06:28→21:28)
[2017-11-12 06:34] LABS: ANION GAP 13.5 mmol/L (8-16); CALCIUM 9.3 mg/dL (8.4-10.2); CREATININE, SERUM 0.96 mg/dL (0.57-1.11); POTASSIUM 3.5 mmol/L (3.5-5.1)
[2017-11-12] MEDS ORDERED: FUROSEMIDE INJ 10 MG/ML 2 ML VIAL IV SCH (07:30)
[2017-11-12] MEDS: FAMOTIDINE 20 MG/2 ML VIAL IV SCH ×2 (08:04→18:16)
[2017-11-12] MEDS: ASPIRIN 81 MG ENTERIC COATED PO SCH (08:04)
[2017-11-12] MEDS: FUROSEMIDE INJ 10 MG/ML 2 ML VIAL IV SCH (08:04)
[2017-11-12] MEDS: GABAPENTIN 300 MG CAP NG SCH ×2 (08:04→18:16)
[2017-11-12] MEDS: FENTANYL CITRATE INJ 2,000 MCG in SODIUM CHLORIDE 0.9% 250ML 210 ML IV PRN (09:07)
[2017-11-12 10:58] LABS: ANISOCYTOSIS SLIGHT; EOSINOPHILS % (MANUAL) 1 % (0-7); LYMPHOCYTES % (MANUAL) 12 % (19-48); MONOCYTES % (MANUAL) 3 % (3.4-9.0); NEUTROPHILS % (MANUAL) 84 % (40-74); PLATELET ESTIMATE ADEQUATE; PLATELET MORPHOLOGY COMMENT NORMAL; RBC MORPHOLOGY COMMENT NORMAL
[2017-11-12 11:13] LABS: ABG HCO3 20 mmol/L (23-28); ABG PCO2 40 mmHg (41-51); ABG PH 7.29 (7.31-7.41); ABG PO2 67 mmHg (80-105)
[2017-11-12] MEDS: VANCOMYCIN 1GM/NS 250 ML 250 ML IV SCH (11:21)
[2017-11-12] MEDS: HEPARIN 25,000U/0.45% NS 250ML 800 UNIT in SODIUM CHLORIDE 0.9% 250ML 0 ML IV SCH (14:51)
[2017-11-12] MEDS ORDERED: ROCURONIUM BROMIDE ONE (14:56)
[2017-11-12] MEDS ORDERED: ROCURONIUM BROMIDE 10 MG/ML 5ML VIAL IV ONE (15:30)
--- NOTE | 2017-11-12 15:45 | Progress Note ---
DATE: November 12, 2017 CARDIOLOGY PROGRESS NOTE SUBJECTIVE: Intubated, sedated. OBJECTIVE VITAL SIGNS: Temperature 98 degrees, heart rate 73, respiratory rate 14, blood pressure 114/55, O2 sat 95% on vent support. Telemetry in sinus rhythm. CHEST: Decreased breath sounds bilaterally. CARDIOVASCULAR: Regular rate and rhythm. Normal S1 and S2. No S3, no S4. ABDOMEN: Soft. EXTREMITIES: Trace edema. CARDIOVASCULAR MEDICATIONS 1. Furosemide 20 mg IV daily. 2. Aspirin 81 mg daily. 3. Heparin IV. STUDIES: White blood cells 8.6, hemoglobin 9.4, platelets 266. PTT 69. Creatinine 0.9. Bicarbonate 19. Chest x-ray with pulmonary opacities bilaterally. ASSESSMENT 1. Acute respiratory failure, on vent support. 2. Community-acquired pneumonia versus pulmonary edema. 3. Non-ST elevation myocardial infarction. 4. History of rheumatoid arthritis. 5. Preserved left ventricular systolic function. PLAN 1. Continue current cardiovascular medications. 2. Antibiotics per ID. 3. Wean vent support as tolerated. 4. Ischemic evaluation at a later date once passed her acute illness. Job#: [id number] PKU
--- NOTE | 2017-11-12 15:47 | Diagnostic Imaging Report ---
EXAM: XR CHEST 1 VIEW DATE: 11/12/2017 3:14 PM INDICATION: Check ET tube COMPARISON: Same day at 0030 FINDINGS: Lines and Tubes: ET tube tip above the linda and NG tube with side holes below the GE junction. Right PICC tip overlying junction of brachiocephalic vein and SVC. Heart and Mediastinum: Enlarged. Lungs and Pleura: Severe bilateral airspace opacities are present which could represent edema and/or pneumonia. Bones and Soft Tissues: No acute findings. IMPRESSION: 1. No significant interval change. Signed by: Dr. Artem Alvares MD on 11/12/2017 3:43 PM
--- NOTE | 2017-11-12 16:32 | Progress Note ---
DATE: SUBJECTIVE: Ms. Ma remained in the intensive care unit, intubated. PHYSICAL EXAMINATION HEENT: Normocephalic. NECK: Supple. CHEST: Few crackles at the bases, coarse. HEART: S1 and S2. No S3, S4 or murmurs. ABDOMEN: Soft. IMPRESSION 1. Respiratory failure. 2. Pneumonia. 3. Non-ST elevation myocardial infarction. 4. History of rheumatoid arthritis. PLAN 1. From infectious disease point of view, she is currently on vancomycin. The trough was high, so I adjusted to 1 g q.24 hours. She remains on Zosyn and azithromycin. The plan is to finish 5 days of Zithromax and 8 days of vancomycin and Zosyn. I am concerned about her respiratory status. She seems a little bit laborious. We will discuss with physical care. 1. Concerned about going into ARDS. 2. Coagulase-negative staph bacteremia contamination. 3. Fungemia. 4. We will follow. Job#: [id number] MIMA
[2017-11-12] MEDS ORDERED: METHYLPREDNISOLONE SOD SUCC 125 MG/2ML VIAL IV SCH ×2 (17:45→22:00)
[2017-11-12] MEDS ORDERED: HYDROCORTISONE SOD SUCCINATE 100 MG VIAL IV SCH (18:00)
[2017-11-12] MEDS ORDERED: METHYLPREDNISOLONE SOD SUCC 40 MG/ML VIAL IV ONE (18:15)
[2017-11-12] MEDS ORDERED: ALBUTEROL SULF 0.083% NEB SOLN 3 ML NEB NEB ONE (18:30)
[2017-11-12] MEDS ORDERED: IPRATROPIUM BROMIDE 0.02% 2.5 ML NEB NEB ONE (18:30)
[2017-11-12] MEDS: METHYLPREDNISOLONE SOD SUCC 40 MG/ML VIAL IV SCH (21:27)
[2017-11-12] MEDS: AZITHROMYCIN 500MG/NS 250 ML 250 ML IV SCH (21:27)
[2017-11-13] VITALS (92 sets, daily range): BP systolic 96–161; BP diastolic 48–75
[2017-11-13] MEDS: MIDAZOLAM HCL 25 MG in SODIUM CHLORIDE 0.9% 50ML 45 ML IV PRN ×8 (00:25→23:25)
[2017-11-13] MEDS: DEXMEDETOMIDINE HCL 200 MCG in SODIUM CHLORIDE 0.9% 50ML 48 ML IV PRN ×7 (01:36→23:26)
[2017-11-13] MEDS: ALBUTEROL SULF 0.083% NEB SOLN 3 ML NEB NEB SCH ×4 (02:30→19:20)
[2017-11-13] MEDS: IPRATROPIUM BROMIDE 0.02% 2.5 ML NEB NEB SCH ×4 (02:30→19:20)
[2017-11-13] MEDS: FENTANYL CITRATE INJ 2,000 MCG in SODIUM CHLORIDE 0.9% 250ML 210 ML IV PRN ×3 (03:12→17:55)
[2017-11-13] MEDS: METHYLPREDNISOLONE SOD SUCC 40 MG/ML VIAL IV SCH ×3 (05:27→21:07)
[2017-11-13] MEDS: PIPER-TAZ 3.375 GM 50 ML IV SCH ×3 (05:27→21:28)
[2017-11-13] MEDS: CISATRACURIUM BESYLATE IV PRN ×5 (05:40→22:30)
[2017-11-13] MEDS: SODIUM CHLORIDE 0.9% IV PRN ×5 (05:40→22:30)
[2017-11-13 05:51] LABS: BASOPHILS % 0.4 % (0.0-1.0); HEMATOCRIT 27.5 % (34.2-44.1); LYMPHOCYTES # (AUTO) 0.3 (1.0-3.2); LYMPHOCYTES % 3.1 % (18.0-39.1); MEAN CORPUSCULAR HEMOGLOBIN 30.7 pg (28-32); MEAN CORPUSCULAR HGB CONC 29.1 g/dL (31-35); MEAN CORPUSCULAR VOLUME 105.4 fL (81-99); MONOCYTES # (AUTO) 0.3 (0.2-0.8); MONOCYTES % 3.1 % (4.4-11.3); NEUTROPHILS # (AUTO) 7.4 (2.1-6.9); NEUTROPHILS % 87.5 % (38.7-80.0); PLATELET COUNT 280 x10e3/uL (140-360); RED BLOOD COUNT 2.61 x10e6/uL (3.6-5.1); RED CELL DISTRIBUTION WIDTH 14.5 % (11.7-14.4)
[2017-11-13 06:02] LABS: ABG HCO3 21 mmol/L (23-28); ABG PCO2 61 mmHg (41-51); ABG PH 7.15 (7.31-7.41); ABG PO2 91 mmHg (80-105)
--- NOTE | 2017-11-13 06:07 | Diagnostic Imaging Report ---
CHEST SINGLE (PORTABLE), 11/13/2017 5:00 AM Technique: CHEST SINGLE (PORTABLE) Comparison: Previous day Clinical history: \S\invasive vent Findings: Rotated portable radiograph. Impression: Overall no significant change 1. Lines/Tubes: Stable ET tube 4.4 cm above the linda, right PICC over the SVC brachiocephalic junction and subdiaphragmatic visualized NG tube. 2. Stable enlarged cardiomediastinal silhouette. 3. Stable diffuse bilateral opacities which may reflect edema and/or infection. Signed by: Dr Kathrine Kim MD on 11/13/2017 6:03 AM
[2017-11-13 06:15] LABS: ANION GAP 13.3 mmol/L (8-16); CALCIUM 9.4 mg/dL (8.4-10.2); CREATININE, SERUM 1.08 mg/dL (0.57-1.11); POTASSIUM 4.3 mmol/L (3.5-5.1)
[2017-11-13] MEDS: HEPARIN 25,000U/0.45% NS 250ML 800 UNIT in SODIUM CHLORIDE 0.9% 250ML 0 ML IV SCH (06:55)
[2017-11-13 07:33] LABS: ABG HCO3 21 mmol/L (23-28); ABG PCO2 42 mmHg (41-51); ABG PH 7.31 (7.31-7.41); ABG PO2 152 mmHg (80-105)
[2017-11-13 09:15] LABS: BAND NEUTROPHILS % (MANUAL) 10 %; LYMPHOCYTES % (MANUAL) 6 % (19-48); MONOCYTES % (MANUAL) 1 % (3.4-9.0); NEUTROPHILS % (MANUAL) 83 % (40-74)
[2017-11-13 09:16] LABS: PLATELET ESTIMATE ADEQUATE; PLATELET MORPHOLOGY COMMENT NORMAL; RBC MORPHOLOGY COMMENT NORMAL
[2017-11-13] MEDS: FAMOTIDINE 20 MG/2 ML VIAL IV SCH ×2 (10:05→17:54)
[2017-11-13] MEDS: FUROSEMIDE INJ 10 MG/ML 2 ML VIAL IV SCH (10:05)
[2017-11-13] MEDS: ASPIRIN 81 MG ENTERIC COATED PO SCH (10:05)
[2017-11-13] MEDS: GABAPENTIN 300 MG CAP NG SCH ×2 (10:05→17:54)
[2017-11-13] MEDS: VANCOMYCIN 1GM/NS 250 ML 250 ML IV SCH (12:31)
--- NOTE | 2017-11-13 14:10 | Progress Note ---
DATE: November 13, 2017 CARDIOLOGY PROGRESS NOTE SUBJECTIVE: Intubated and sedated. OBJECTIVE VITAL SIGNS: Temperature 99.7, heart rate 63, respiratory rate 14, blood pressure 140/70, O2 sat 98% on vent support. GENERAL: Intubated and sedated. Decreased breath sounds. CARDIOVASCULAR: Regular rate and rhythm. Normal S1 and S2. No S3, no S4. ABDOMEN: Soft. EXTREMITIES: Trace edema. CARDIOVASCULAR MEDICATIONS: Reviewed. Aspirin 81 mg daily. Furosemide 20 mg IV daily and Zosyn and azithromycin. LABORATORY STUDIES: Reviewed. White blood cells 8.4, hemoglobin 8, platelets 280,000. PTT 86. Sodium 148, potassium 4.3, chloride 118, bicarbonate 21. BUN 37, creatinine 1.08. Glucose 142. Magnesium 1.7. Calcium 9.4. ASSESSMENT: 1. Acute respiratory failure on vent support. 2. Community-acquired pneumonia versus pulmonary edema. 3. Pct-TL-owxgscsni myocardial infarction. 4. History of rheumatoid arthritis. 5. Preserved left ventricular systolic function. PLAN: Continue wean vent support. Ischemic evaluation once past acute illness. Continue antibiotics per infectious disease. Continue rest of cardiovascular medications. Job#: [id number]
[2017-11-13] MEDS ORDERED: SODIUM CHLORIDE 0.9% 250ML 250 ML ONE (14:39)
[2017-11-14] VITALS (93 sets, daily range): BP systolic 119–158; BP diastolic 52–74
[2017-11-14] MEDS: IPRATROPIUM BROMIDE 0.02% 2.5 ML NEB NEB SCH ×4 (01:20→19:18)
[2017-11-14] MEDS: ALBUTEROL SULF 0.083% NEB SOLN 3 ML NEB NEB SCH ×4 (01:20→19:18)
[2017-11-14] MEDS ORDERED: HEPARIN 25,000U/0.45% NS 250ML 250 ML ONE (01:26)
[2017-11-14] MEDS: HEPARIN 25,000 UNIT/D5W 250ML 250 ML IV SCH (01:57)
[2017-11-14] MEDS: DEXMEDETOMIDINE HCL 200 MCG in SODIUM CHLORIDE 0.9% 50ML 48 ML IV PRN ×4 (02:08→17:11)
[2017-11-14] MEDS: MIDAZOLAM HCL 25 MG in SODIUM CHLORIDE 0.9% 50ML 45 ML IV PRN ×4 (02:09→22:21)
[2017-11-14] MEDS: SODIUM CHLORIDE 0.9% IV PRN ×6 (02:12→22:56)
[2017-11-14] MEDS: CISATRACURIUM BESYLATE IV PRN ×6 (02:12→22:56)
[2017-11-14 05:21] LABS: BASOPHILS % 0.1 % (0.0-1.0); HEMOGLOBIN 8.7 g/dL (12.0-16.0); LYMPHOCYTES # (AUTO) 0.4 (1.0-3.2); LYMPHOCYTES % 5.2 % (18.0-39.1); MEAN CORPUSCULAR HGB CONC 31.1 g/dL (31-35); MONOCYTES # (AUTO) 0.4 (0.2-0.8); MONOCYTES % 5.6 % (4.4-11.3); NEUTROPHILS # (AUTO) 6.4 (2.1-6.9); NEUTROPHILS % 83.7 % (38.7-80.0); PLATELET COUNT 267 x10e3/uL (140-360); RED BLOOD COUNT 2.81 x10e6/uL (3.6-5.1); RED CELL DISTRIBUTION WIDTH 14.3 % (11.7-14.4)
[2017-11-14 05:27] LABS: MEAN CORPUSCULAR VOLUME 99.6 fL (81-99)
[2017-11-14 05:38] LABS: ANION GAP 10.4 mmol/L (8-16); CALCIUM 9.2 mg/dL (8.4-10.2); CREATININE, SERUM 1.1 mg/dL (0.57-1.11)
[2017-11-14] MEDS: METHYLPREDNISOLONE SOD SUCC 40 MG/ML VIAL IV SCH ×3 (05:38→22:03)
[2017-11-14 05:48] LABS: POTASSIUM 3.4 mmol/L (3.5-5.1)
[2017-11-14] MEDS: FENTANYL CITRATE INJ 2,000 MCG in SODIUM CHLORIDE 0.9% 250ML 210 ML IV PRN ×3 (06:15→22:05)
[2017-11-14] MEDS ORDERED: DEXMEDETOMIDINE HCL 200 MCG in SODIUM CHLORIDE 0.9% 50ML 48 ML IV PRN (06:30)
--- NOTE | 2017-11-14 06:39 | Diagnostic Imaging Report ---
CHEST SINGLE (PORTABLE), 11/14/2017 7:00 AM Technique: CHEST SINGLE (PORTABLE) Comparison: Previous day Clinical history: ARDS Findings: Rotated portable radiograph. Impression: Overall no significant change 1. Lines/Tubes: Stable ET tube 1.8 cm above the linda, right PICC over the SVC brachiocephalic junction and subdiaphragmatic visualized NG tube. 2. Stable enlarged cardiomediastinal silhouette. 3. Stable extensive diffuse bilateral opacities. Small pleural effusions. Signed by: Dr Kathrine Kim MD on 11/14/2017 6:35 AM
[2017-11-14 07:23] LABS: BAND NEUTROPHILS % (MANUAL) 1 %; LYMPHOCYTES % (MANUAL) 7 % (19-48); MONOCYTES % (MANUAL) 4 % (3.4-9.0); NEUTROPHILS % (MANUAL) 88 % (40-74); PLATELET ESTIMATE ADEQUATE; PLATELET MORPHOLOGY COMMENT NORMAL; RBC MORPHOLOGY COMMENT NORMAL
[2017-11-14] MEDS: FAMOTIDINE 20 MG/2 ML VIAL IV SCH ×2 (08:14→16:44)
[2017-11-14] MEDS: FUROSEMIDE INJ 10 MG/ML 2 ML VIAL IV SCH (08:14)
[2017-11-14] MEDS: ASPIRIN 81 MG ENTERIC COATED PO SCH (08:15)
[2017-11-14] MEDS: GABAPENTIN 300 MG CAP NG SCH ×2 (08:15→16:44)
[2017-11-14] MEDS: MIDAZOLAM HCL 25 MG in DEXTROSE 5% 50ML 45 ML IV PRN ×5 (08:15→18:45)
[2017-11-14] MEDS: POTASSIUM CHLORIDE 20MEQ/15ML UDC NG PRN (08:30)
[2017-11-14] MEDS: VANCOMYCIN 1GM/NS 250 ML 250 ML IV SCH (11:41)
[2017-11-14] MEDS: PIPER-TAZ 3.375 GM 50 ML IV SCH ×2 (13:18→22:03)
[2017-11-14] MEDS ORDERED: FUROSEMIDE INJ 10 MG/ML 4 ML VIAL IV NR (14:45)
[2017-11-14] MEDS ORDERED: METOCLOPRAMIDE HCL 10 MG/2ML VIAL IV ONE (15:25)
--- NOTE | 2017-11-14 21:02 | Progress Note ---
DATE: November 14, 2017 CARDIOLOGY PROGRESS NOTE SUBJECTIVE: The patient remains intubated, sedated and paralyzed. OBJECTIVE VITAL SIGNS: Temperature 96.6 degrees, pulse 52, respiratory rate 22, blood pressure 153/67, oxygen saturation 97% on mechanical ventilation. GENERAL: Elderly woman, intubated and sedated on paralytics, in no acute distress. LUNGS: Decreased breath sounds. No wheezes or crackles. CARDIOVASCULAR: Normal rate, regular rhythm. Normal S1 and S2. ABDOMEN: Soft and nontender. EXTREMITIES: Trace edema. CARDIAC MEDICATIONS 1. Furosemide 40 mg IV b.i.d. 2. Aspirin 81 mg p.o. daily. 3. Heparin drip. LABS: WBC 7.66, hemoglobin 8.7, hematocrit 28, platelets 267,000, sodium 148, potassium 3.4, chloride 118, CO2 of 23, BUN 49, creatinine 1.1. TELEMETRY: Normal sinus rhythm with sinus bradycardia. IMPRESSION 1. Acute respiratory failure. Currently on mechanical ventilation. 2. Community-acquired pneumonia versus pulmonary edema. 3. Non-ST elevation myocardial infarction. 4. History of rheumatoid arthritis. 5. Coagulase negative Staphylococcus species bacteremia, suspected to be contamination by infectious disease. Raeann albicans on sputum culture. RECOMMENDATIONS: Continue current cardiac medications. Ventilatory support per pulmonary. She would likely benefit from diuresis as she has gained approximately 30 pounds since admission. Once her respiratory status improves and she has recovered from her acute illness, she will need ischemic evaluation. Antibiotics per infectious disease. Thank you for this consult. We will continue to follow. Job#: [id number]
[2017-11-15] VITALS (95 sets, daily range): BP systolic 111–141; BP diastolic 43–77
[2017-11-15] MEDS: ALBUTEROL SULF 0.083% NEB SOLN 3 ML NEB NEB SCH ×3 (01:20→19:35)
[2017-11-15] MEDS: IPRATROPIUM BROMIDE 0.02% 2.5 ML NEB NEB SCH ×3 (01:20→19:35)
[2017-11-15] MEDS: HEPARIN 25,000 UNIT/D5W 250ML 250 ML IV SCH (01:30)
[2017-11-15] MEDS: MIDAZOLAM HCL 25 MG in SODIUM CHLORIDE 0.9% 50ML 45 ML IV PRN ×7 (01:37→23:39)
[2017-11-15] MEDS: HEPARIN 25,000U/0.45% NS 250ML 250 ML IV SCH (02:51)
[2017-11-15] MEDS: CISATRACURIUM BESYLATE IV PRN ×2 (03:25→07:06)
[2017-11-15] MEDS: SODIUM CHLORIDE 0.9% IV PRN ×2 (03:25→07:06)
[2017-11-15] MEDS: FENTANYL CITRATE INJ 2,000 MCG in SODIUM CHLORIDE 0.9% 250ML 210 ML IV PRN ×3 (03:26→17:07)
[2017-11-15 05:57] LABS: ANION GAP 13.2 mmol/L (8-16); CALCIUM 8.9 mg/dL (8.4-10.2); CREATININE, SERUM 0.99 mg/dL (0.57-1.11); POTASSIUM 3.2 mmol/L (3.5-5.1)
[2017-11-15] MEDS: PIPER-TAZ 3.375 GM 50 ML IV SCH ×3 (06:00→21:08)
[2017-11-15] MEDS: METHYLPREDNISOLONE SOD SUCC 40 MG/ML VIAL IV SCH ×3 (06:00→21:08)
--- NOTE | 2017-11-15 06:57 | Diagnostic Imaging Report ---
CHEST SINGLE (PORTABLE), 11/15/2017 6:00 AM Technique: CHEST SINGLE (PORTABLE) Comparison: 11/14/2017 Clinical history: On ventilator Findings: Slightly rotated portable radiograph. Impression: 1. Lines/Tubes: Stable ET tube 5 cm above the linda, right PICC over the SVC brachiocephalic junction and subdiaphragmatic visualized NG tube. 2. Stable enlarged cardiomediastinal silhouette. 3. Slightly improved diffuse pulmonary edema 4. Small pleural effusions. Signed by: Dr. Silver Schwartz M.D. on 11/15/2017 6:53 AM
[2017-11-15] MEDS ORDERED: FUROSEMIDE INJ 10 MG/ML 2 ML VIAL IV SCH (07:00)
[2017-11-15] MEDS: FUROSEMIDE INJ 10 MG/ML 4 ML VIAL IV SCH ×2 (07:13→16:40)
[2017-11-15] MEDS: POTASSIUM CHLORIDE 20MEQ/15ML UDC NG PRN ×2 (07:14→13:42)
[2017-11-15] MEDS: ASPIRIN 81 MG ENTERIC COATED PO SCH (09:00)
[2017-11-15] MEDS: GABAPENTIN 300 MG CAP NG SCH ×2 (09:22→16:40)
[2017-11-15] MEDS: FAMOTIDINE 20 MG/2 ML VIAL IV SCH ×2 (09:22→16:40)
[2017-11-15 09:46] LABS: ABG PH 7.38 (7.31-7.41)
[2017-11-15 09:47] LABS: ABG HCO3 27 mmol/L (23-28); ABG PCO2 45 mmHg (41-51); ABG PO2 84 mmHg (80-105)
[2017-11-15] MEDS: VANCOMYCIN 1GM/NS 250 ML 250 ML IV SCH (11:15)
--- NOTE | 2017-11-15 11:18 | Progress Note ---
DATE: November 15, 2017 CARDIOLOGY PROGRESS NOTE SUBJECTIVE: The patient remains intubated and sedated on paralytics. FiO2 has been decreased to 50% and PEEP down to 8. OBJECTIVE VITAL SIGNS: Temperature 96.8 degrees, pulse 61, respiratory rate 22, blood pressure 123/61, oxygen saturation 97% on mechanical ventilation. GENERAL: Intubated and sedated on paralytics, in no acute distress. LUNGS: Decreased breath sounds. No wheezes or crackles. CARDIOVASCULAR: Normal rate, regular rhythm. Normal S1 and S2. ABDOMEN: Soft and nontender. EXTREMITIES: Trace edema. CARDIAC MEDICATIONS 1. Furosemide 40 mg IV b.i.d. 2. Heparin drip. 3. Aspirin 81 mg p.o. daily. LABS: Sodium 153, potassium 3.2, chloride 119, CO2 24, BUN 54, creatinine 0.99. BNP 663. TELEMETRY: Normal sinus rhythm. IMPRESSION 1. Acute respiratory failure, currently on mechanical ventilation. 2. Community-acquired pneumonia versus pulmonary edema. 3. Teo-FF-vlugsasgc myocardial infarction. 4. History of rheumatoid arthritis. 5. Coagulase-negative Staphylococcus species bacteremia, suspected to be contamination by infectious disease. 6. Raeann albicans on sputum culture. RECOMMENDATIONS: Continue current cardiac medications. Patient is diuresing well with stable creatinine. We will continue to replete electrolytes. Weaning of mechanical ventilation per pulmonary. Antibiotics per infectious disease. Once her respiratory status improves and she has recovered from her acute illness, she will need ischemic evaluation with cardiac catheterization. Thank you for this consult. We will continue to follow. Job#: [id number]
[2017-11-16] VITALS (80 sets, daily range): BP systolic 129–176; BP diastolic 52–150
[2017-11-16] MEDS: ALBUTEROL SULF 0.083% NEB SOLN 3 ML NEB NEB SCH ×4 (01:20→18:52)
[2017-11-16] MEDS: IPRATROPIUM BROMIDE 0.02% 2.5 ML NEB NEB SCH ×4 (01:20→18:52)
[2017-11-16] MEDS: MIDAZOLAM HCL 25 MG in SODIUM CHLORIDE 0.9% 50ML 45 ML IV PRN ×2 (02:22→11:37)
[2017-11-16] MEDS: FENTANYL CITRATE INJ 2,000 MCG in SODIUM CHLORIDE 0.9% 250ML 210 ML IV PRN ×2 (02:48→21:26)
[2017-11-16] MEDS: HEPARIN 25,000U/0.45% NS 250ML 250 ML IV SCH (03:21)
[2017-11-16 04:13] LABS: BASOPHILS % 0.2 % (0.0-1.0); HEMATOCRIT 30.3 % (34.2-44.1); HEMOGLOBIN 9.7 g/dL (12.0-16.0); LYMPHOCYTES # (AUTO) 0.4 (1.0-3.2); LYMPHOCYTES % 2.9 % (18.0-39.1); MEAN CORPUSCULAR HEMOGLOBIN 31.2 pg (28-32); MEAN CORPUSCULAR VOLUME 97.4 fL (81-99); MONOCYTES # (AUTO) 0.4 (0.2-0.8); MONOCYTES % 2.8 % (4.4-11.3); NEUTROPHILS # (AUTO) 13.2 (2.1-6.9); NEUTROPHILS % 89.4 % (38.7-80.0); PLATELET COUNT 312 x10e3/uL (140-360); RED BLOOD COUNT 3.11 x10e6/uL (3.6-5.1); RED CELL DISTRIBUTION WIDTH 14.6 % (11.7-14.4)
[2017-11-16 04:35] LABS: ANION GAP 13.4 mmol/L (8-16); BLOOD UREA NITROGEN 53 mg/dL (7-26); BUN/CREATININE RATIO 61 (6-25); CALCIUM 9.1 mg/dL (8.4-10.2); CARBON DIOXIDE 28 mmol/L (22-29); CHLORIDE 116 mmol/L (98-107); CREATININE, SERUM 0.87 mg/dL (0.57-1.11); EST GLOMERULAR FILTRATION RATE > 60 ML/MIN (60-); GLUCOSE 154 mg/dL (74-118); MAGNESIUM 1.9 MG/DL (1.3-2.1); POTASSIUM 3.4 mmol/L (3.5-5.1); SODIUM 154 mmol/L (136-145)
[2017-11-16 04:38] LABS: ANISOCYTOSIS SLIGHT; LYMPHOCYTES % (MANUAL) 2 % (19-48); METAMYELOCYTES % (MANUAL) 2 % (0-0); MONOCYTES % (MANUAL) 2 % (3.4-9.0); NEUTROPHILS % (MANUAL) 94 % (40-74); PLATELET ESTIMATE ADEQUATE; RBC MORPHOLOGY COMMENT NORMAL
[2017-11-16 04:39] LABS: PLATELET MORPHOLOGY COMMENT FEW LARGE
[2017-11-16] MEDS: METHYLPREDNISOLONE SOD SUCC 40 MG/ML VIAL IV SCH ×3 (05:54→22:01)
[2017-11-16] MEDS: PIPER-TAZ 3.375 GM 50 ML IV SCH ×3 (05:54→22:01)
--- NOTE | 2017-11-16 06:22 | Diagnostic Imaging Report ---
EXAMINATION: CHEST SINGLE (PORTABLE) INDICATION: Pulmonary edema COMPARISON: 11/15/2017 FINDINGS: TUBES and LINES: Endotracheal tube, NG tube and right upper extremity PICC line are stable. Tip of the PICC line remains in the distribution of the right innominate vein LUNGS: Lungs are not well inflated. There are bibasilar atelectasis. There is perihilar interstitial opacities, consistent with interstitial edema. PLEURA: Trace of bilateral pleural effusions. HEART AND MEDIASTINUM: Cardiac size is mildly enlarged. There are atherosclerotic calcifications within the aorta. BONES AND SOFT TISSUES: No acute osseous lesion. Soft tissues are unremarkable. UPPER ABDOMEN: No free air under the diaphragm. IMPRESSION: Persistent, cardiogenic pulmonary edema and trace of bilateral pleural effusions Signed by: Dr. Silver Schwartz M.D. on 11/16/2017 6:18 AM
[2017-11-16] MEDS: DEXMEDETOMIDINE HCL 200 MCG in SODIUM CHLORIDE 0.9% 50ML 48 ML IV PRN ×2 (10:00→23:03)
[2017-11-16] MEDS: VANCOMYCIN 750MG/NS 150ML IVPB 150 ML IV SCH (10:06)
[2017-11-16] MEDS: GABAPENTIN 300 MG CAP NG SCH ×2 (10:06→18:29)
[2017-11-16] MEDS: ASPIRIN 81 MG ENTERIC COATED PO SCH (10:06)
[2017-11-16] MEDS: FUROSEMIDE INJ 10 MG/ML 4 ML VIAL IV SCH ×2 (10:06→18:29)
[2017-11-16] MEDS: FAMOTIDINE 20 MG/2 ML VIAL IV SCH ×2 (10:06→18:29)
--- NOTE | 2017-11-16 10:12 | Diagnostic Imaging Report ---
PROCEDURE: A single AP view of the chest. COMPARISON: [facility], DX, CHEST SINGLE (PORTABLE), 11/16/2017, 5:41. INDICATIONS: X-RAY FOR ETT PLACEMENT FINDINGS: Lines/tubes: Endotracheal tube at the level of the clavicles. There is a nasogastric tube extending below the diaphragm. Right-sided PICC unchanged. Lungs: Diffuse pulmonary edema is unchanged. Pleura: Small bilateral pleural effusions. Heart and mediastinum: The heart is prominent. Bones: No acute bony abnormality. IMPRESSION: 1. Tubes and lines as described above appear appropriate in location. 2. Diffuse pulmonary edema unchanged. Brandin Mullen D.O. Dictated by: Brandin Mullen D.O. on 11/16/2017 at 10:16 Electronically approved by: Brandin Mullen D.O. on 11/16/2017 at 10:16
--- NOTE | 2017-11-16 14:17 | Progress Note ---
DATE: November 16, 2017 CARDIOLOGY PROGRESS NOTE SUBJECTIVE: Ms. Ma remains intubated on fentanyl only. The propofol has been turned off. OBJECTIVE VITAL SIGNS: Afebrile. Heart rate 62. Blood pressure 131/55. O2 sat is 94%. CARDIOVASCULAR: Regular rhythm. S3 gallop. LUNGS: Occasional rhonchi and crackles bilaterally. ABDOMEN: Mildly distended. MEDICATIONS: Reviewed. LABS: WBC count is 14,800. Potassium is 3.4. Last echocardiogram showed an ejection fraction of 60%. ASSESSMENT: Xvl-ZW-fhbkygk elevation myocardial infarction. RECOMMENDATION: Discontinue IV heparin. We will put her on Lovenox for DVT prophylaxis. She will need cardiac angiography when more stable. Job#: [id number]
[2017-11-16] MEDS: METOPROLOL TARTRATE 25 MG TAB PO SCH (18:29)
[2017-11-16] MEDS: ENOXAPARIN SOD INJ 40 MG/0.4 ML SYR SC SCH (19:10)
[2017-11-16] MEDS ORDERED: ATORVASTATIN 20 MG TAB PO SCH (21:00)
[2017-11-16] MEDS: ATORVASTATIN 40 MG TAB PO SCH (22:01)
[2017-11-17] VITALS (82 sets, daily range): BP systolic 100–190; BP diastolic 35–104
[2017-11-17] MEDS: ALBUTEROL SULF 0.083% NEB SOLN 3 ML NEB NEB SCH ×4 (02:45→18:42)
[2017-11-17] MEDS: IPRATROPIUM BROMIDE 0.02% 2.5 ML NEB NEB SCH ×4 (02:45→18:42)
[2017-11-17] MEDS: DEXMEDETOMIDINE HCL 200 MCG in SODIUM CHLORIDE 0.9% 50ML 48 ML IV PRN ×3 (04:37→21:30)
[2017-11-17] MEDS: FENTANYL CITRATE INJ 2,000 MCG in SODIUM CHLORIDE 0.9% 250ML 210 ML IV PRN ×2 (05:46→15:49)
[2017-11-17 05:59] LABS: BASOPHILS % 0.1 % (0.0-1.0); HEMATOCRIT 32.1 % (34.2-44.1); HEMOGLOBIN 10.1 g/dL (12.0-16.0); LYMPHOCYTES # (AUTO) 0.5 (1.0-3.2); LYMPHOCYTES % 3.3 % (18.0-39.1); MEAN CORPUSCULAR HEMOGLOBIN 30.9 pg (28-32); MEAN CORPUSCULAR HGB CONC 31.5 g/dL (31-35); MEAN CORPUSCULAR VOLUME 98.2 fL (81-99); MONOCYTES # (AUTO) 0.7 (0.2-0.8); MONOCYTES % 4.1 % (4.4-11.3); NEUTROPHILS # (AUTO) 14.5 (2.1-6.9); NEUTROPHILS % 90.6 % (38.7-80.0); PLATELET COUNT 257 x10e3/uL (140-360); RED BLOOD COUNT 3.27 x10e6/uL (3.6-5.1); RED CELL DISTRIBUTION WIDTH 14.6 % (11.7-14.4)
[2017-11-17] MEDS: METHYLPREDNISOLONE SOD SUCC 40 MG/ML VIAL IV SCH ×3 (06:07→21:08)
[2017-11-17] MEDS: PIPER-TAZ 3.375 GM 50 ML IV SCH ×3 (06:07→21:08)
[2017-11-17 06:11] LABS: ANION GAP 12.1 mmol/L (8-16); BLOOD UREA NITROGEN 48 mg/dL (7-26); BUN/CREATININE RATIO 66 (6-25); CALCIUM 8.9 mg/dL (8.4-10.2); CARBON DIOXIDE 35 mmol/L (22-29); CHLORIDE 113 mmol/L (98-107); CREATININE, SERUM 0.73 mg/dL (0.57-1.11); EST GLOMERULAR FILTRATION RATE > 60 ML/MIN (60-); GLUCOSE 145 mg/dL (74-118); POTASSIUM 3.1 mmol/L (3.5-5.1); SODIUM 157 mmol/L (136-145)
--- NOTE | 2017-11-17 07:04 | Diagnostic Imaging Report ---
EXAMINATION: CHEST SINGLE (PORTABLE) INDICATION: Mechanical ventilation COMPARISON: 11/16/2017 FINDINGS: TUBES and LINES: Endotracheal tube, NG tube and right upper extremity PICC line are stable. Tip of the PICC line remains in the distribution of the right innominate vein LUNGS: Lungs are not well inflated. There are bibasilar atelectasis. There is evidence of improving interlobular septi thickening and alveolar opacities. PLEURA: Trace of bilateral pleural effusions. HEART AND MEDIASTINUM: Cardiac size is mildly enlarged. There are atherosclerotic calcifications within the aorta. BONES AND SOFT TISSUES: No acute osseous lesion. Soft tissues are unremarkable. UPPER ABDOMEN: No free air under the diaphragm. IMPRESSION: Slight improvement in alveolar and interstitial edema. Signed by: Dr. Silver Schwartz M.D. on 11/17/2017 7:01 AM
[2017-11-17 07:37] LABS: ANISOCYTOSIS SLIGHT; HYPOCHROMASIA SLIGHT; LYMPHOCYTES % (MANUAL) 6 % (19-48); MONOCYTES % (MANUAL) 5 % (3.4-9.0); NEUTROPHILS % (MANUAL) 89 % (40-74); RBC MORPHOLOGY COMMENT NORMAL
[2017-11-17 07:38] LABS: PLATELET ESTIMATE ADEQUATE; PLATELET MORPHOLOGY COMMENT NORMAL
[2017-11-17] MEDS: POTASSIUM CHLORIDE 20MEQ/15ML UDC NG PRN (09:03)
[2017-11-17] MEDS: ASPIRIN 81 MG ENTERIC COATED PO SCH (09:12)
[2017-11-17] MEDS: GABAPENTIN 300 MG CAP NG SCH ×2 (09:12→17:25)
[2017-11-17] MEDS: FAMOTIDINE 20 MG/2 ML VIAL IV SCH ×2 (09:12→17:25)
[2017-11-17] MEDS: FUROSEMIDE INJ 10 MG/ML 4 ML VIAL IV SCH ×2 (09:12→21:08)
[2017-11-17] MEDS: METOPROLOL TARTRATE 25 MG TAB PO SCH ×2 (09:12→17:25)
[2017-11-17 09:37] LABS: ABG HCO3 37 mmol/L (23-28); ABG PCO2 50 mmHg (41-51); ABG PH 7.47 (7.31-7.41); ABG PO2 59 mmHg (80-105)
[2017-11-17] MEDS: VANCOMYCIN 750MG/NS 150ML IVPB 150 ML IV SCH (09:52)
--- NOTE | 2017-11-17 10:46 | Diagnostic Imaging Report ---
PROCEDURE: CHEST SINGLE (PORTABLE) COMPARISON: 11/17/2017 at 0516. INDICATIONS: ET TUBE PLACEMENT FINDINGS: See conclusion CONCLUSION: 1. Endotracheal tube tip now projects 4.5 cm above the linda. Stable position of enteric tube and right upper extremity PICC. 2. When accounting for differences in technique, no appreciable interval change in the appearance of the heart or lungs. Persistent findings include interstitial and alveolar pulmonary edema and retrocardiac airspace disease, likely atelectasis. Dictated by: Lavelle Holland M.D. on 11/17/2017 at 10:50 Electronically approved by: Lavelle Holland M.D. on 11/17/2017 at 10:50
[2017-11-17] MEDS: ENOXAPARIN SOD INJ 40 MG/0.4 ML SYR SC SCH (17:26)
--- NOTE | 2017-11-17 19:41 | Progress Note ---
DATE: November 17, 2017 CARDIOLOGY PROGRESS NOTE SUBJECTIVE: The patient remains intubated and sedated. OBJECTIVE VITALS: Temperature 98.4 degrees, pulse 98, respiratory rate 22, blood pressure 159/70, oxygen saturation 90% on mechanical ventilation. GENERAL: Intubated, sedated and in no acute distress. LUNGS: Decreased breath sounds. No wheezes or crackles. CARDIOVASCULAR: Normal rate. Regular rhythm. Normal S1 and S2. ABDOMEN: Soft and nontender. EXTREMITIES: Two plus pitting edema. CARDIAC MEDICATIONS 1. Enoxaparin 40 mg subcutaneous daily. 2. Metoprolol tartrate 25 mg p.o. b.i.d. 3. Aspirin 81 mg p.o. daily. 4. Atorvastatin 40 mg p.o. at bedtime. WBC 16.04, hemoglobin 10.1, hematocrit 32.1, and platelets 257,000. Sodium 157, potassium 3.1, chloride 113, CO2 35, BUN 48, creatinine 0.73. BNP 663. Telemetry is normal sinus rhythm. IMPRESSION 1. Acute respiratory failure: Currently, on mechanical ventilation. 2. Community-acquired pneumonia versus pulmonary edema. 3. Ars-OO-nuqhmkk elevation myocardial infarction. 4. History of rheumatoid arthritis. 5. Coagulase-negative Staphylococcus bacteremia: Suspected to be contamination by infectious disease. 6. Raeann albicans on sputum culture. RECOMMENDATIONS: Increase diuretics. The patient remains volume overloaded with stable creatinine. Replete electrolytes. Wean mechanical ventilation per pulmonary. Antibiotics per infectious disease. Once the patient's respiratory status improves and she has recovered from her acute illness, she will need ischemic evaluation with cardiac catheterization. Thank you for this consult. We will continue to follow. Job#: [id number] DELMI
[2017-11-17] MEDS: ATORVASTATIN 40 MG TAB PO SCH (21:08)
[2017-11-18] VITALS (71 sets, daily range): BP systolic 61–148; BP diastolic 34–87
[2017-11-18] MEDS: ALBUTEROL SULF 0.083% NEB SOLN 3 ML NEB NEB SCH ×4 (02:10→18:50)
[2017-11-18] MEDS: IPRATROPIUM BROMIDE 0.02% 2.5 ML NEB NEB SCH ×4 (02:10→18:50)
[2017-11-18] MEDS: DEXMEDETOMIDINE HCL 200 MCG in SODIUM CHLORIDE 0.9% 50ML 48 ML IV PRN ×2 (03:06→19:30)
[2017-11-18] MEDS: METHYLPREDNISOLONE SOD SUCC 40 MG/ML VIAL IV SCH ×3 (05:48→21:53)
[2017-11-18] MEDS: PIPER-TAZ 3.375 GM 50 ML IV SCH ×3 (05:48→21:53)
[2017-11-18 05:52] LABS: BASOPHILS % 0.1 % (0.0-1.0); HEMATOCRIT 31.8 % (34.2-44.1); HEMOGLOBIN 9.9 g/dL (12.0-16.0); LYMPHOCYTES # (AUTO) 0.8 (1.0-3.2); LYMPHOCYTES % 4.8 % (18.0-39.1); MEAN CORPUSCULAR HEMOGLOBIN 30.7 pg (28-32); MEAN CORPUSCULAR HGB CONC 31.1 g/dL (31-35); MEAN CORPUSCULAR VOLUME 98.5 fL (81-99); MONOCYTES # (AUTO) 0.8 (0.2-0.8); MONOCYTES % 4.3 % (4.4-11.3); NEUTROPHILS # (AUTO) 15.5 (2.1-6.9); NEUTROPHILS % 89.4 % (38.7-80.0); PLATELET COUNT 260 x10e3/uL (140-360); RED BLOOD COUNT 3.23 x10e6/uL (3.6-5.1); RED CELL DISTRIBUTION WIDTH 15.1 % (11.7-14.4)
[2017-11-18 06:12] LABS: ANION GAP 12.9 mmol/L (8-16); BLOOD UREA NITROGEN 41 mg/dL (7-26); BUN/CREATININE RATIO 58 (6-25); CALCIUM 8.7 mg/dL (8.4-10.2); CARBON DIOXIDE 39 mmol/L (22-29); CHLORIDE 108 mmol/L (98-107); CREATININE, SERUM 0.71 mg/dL (0.57-1.11); EST GLOMERULAR FILTRATION RATE > 60 ML/MIN (60-); GLUCOSE 133 mg/dL (74-118); SODIUM 157 mmol/L (136-145)
[2017-11-18 06:15] LABS: POTASSIUM 2.9 mmol/L (3.5-5.1)
[2017-11-18] MEDS ORDERED: POTASSIUM CHLORIDE 20 MEQ TAB CR PO STA (06:21)
[2017-11-18] MEDS ORDERED: POTASSIUM CHLORIDE 20MEQ/100ML 200 ML IV ONE (06:30)
[2017-11-18] MEDS: FENTANYL CITRATE INJ 2,000 MCG in SODIUM CHLORIDE 0.9% 250ML 210 ML IV PRN ×2 (06:48→19:30)
--- NOTE | 2017-11-18 06:48 | Diagnostic Imaging Report ---
EXAMINATION: CHEST SINGLE (PORTABLE) INDICATION: Ventilation COMPARISON: 11/17/2017 FINDINGS: TUBES and LINES: Endotracheal tube, NG tube and right upper extremity PICC line are stable. Tip of the PICC line remains in the distribution of the right innominate vein LUNGS: Lungs are not well inflated. There are bibasilar atelectasis. There is evidence of recurrent worsening interlobular septi thickening and alveolar opacities. PLEURA: Trace of bilateral pleural effusions. HEART AND MEDIASTINUM: Cardiac size is mildly enlarged. There are atherosclerotic calcifications within the aorta. BONES AND SOFT TISSUES: No acute osseous lesion. Soft tissues are unremarkable. UPPER ABDOMEN: No free air under the diaphragm. IMPRESSION: Recurrent worsening of alveolar and interstitial edema. Signed by: Dr. Silver Schwartz M.D. on 11/18/2017 6:45 AM
--- NOTE | 2017-11-18 08:01 | Diagnostic Imaging Report ---
PROCEDURE: CHEST SINGLE (PORTABLE) COMPARISON: 2017 at 539 hours. INDICATIONS: ETT PLACEMENT FINDINGS: See conclusion CONCLUSION: Endotracheal tube is unchanged in position, with the tip projecting 5.5 cm above the linda. Right upper extremity PICC and enteric tubes are also unchanged in position. Stable appearance of the heart and lungs compared to the examination from 2 hours prior. Persistent interstitial and alveolar pulmonary edema. Dictated by: Lavelle Holland M.D. on 11/18/2017 at 8:05 Electronically approved by: Lavelle Holland M.D. on 11/18/2017 at 8:05
[2017-11-18] MEDS: GABAPENTIN 300 MG CAP NG SCH ×2 (09:00→17:14)
[2017-11-18] MEDS: ASPIRIN 81 MG ENTERIC COATED PO SCH (09:00)
[2017-11-18] MEDS: METOPROLOL TARTRATE 25 MG TAB PO SCH ×2 (09:00→17:00)
[2017-11-18] MEDS: FUROSEMIDE INJ 10 MG/ML 4 ML VIAL IV SCH ×2 (09:00→17:06)
[2017-11-18] MEDS: FAMOTIDINE 20 MG/2 ML VIAL IV SCH ×2 (09:00→17:06)
[2017-11-18] MEDS: NYSTATIN 15 GM POWDER UD BTL TOP SCH (09:00)
[2017-11-18] MEDS ORDERED: FUROSEMIDE INJ 10 MG/ML 4 ML VIAL IV SCH (09:00)
[2017-11-18] MEDS: VANCOMYCIN 750MG/NS 150ML IVPB 150 ML IV SCH (09:30)
--- NOTE | 2017-11-18 13:15 | Diagnostic Imaging Report ---
PROCEDURE: A single AP view of the chest. COMPARISON: 11/18/2017 at 0751. INDICATIONS: PICC LINE PLACEMENT FINDINGS: See impression IMPRESSION: 1. interval placement of a left upper extremity PICC. The tip projects over the expected region of the low superior vena cava. Right upper extremity PICC, endotracheal tube, and enteric tube are unchanged in position. 2. Stable appearance of the heart and lungs relative to 0751 hours. Persistent interstitial and alveolar pulmonary edema and retrocardiac airspace disease likely atelectasis. Dictated by: Lavelle Holland M.D. on 11/18/2017 at 13:19 Electronically approved by: Lavelle Holland M.D. on 11/18/2017 at 13:19
[2017-11-18] MEDS: GENTAMICIN SULFATE 0.3% OP 5 ML BTL OP SCH ×3 (14:32→21:53)
[2017-11-18] MEDS: ENOXAPARIN SOD INJ 40 MG/0.4 ML SYR SC SCH (17:00)
--- NOTE | 2017-11-18 17:13 | Progress Note ---
DATE: November 18, 2017 CARDIOLOGY PROGRESS NOTE SUBJECTIVE: The patient remains intubated and sedated. She has had increased oxygen requirement, now on FIO2 of 75% and a PEEP of 10. OBJECTIVE VITAL SIGNS: Temperature 98 degrees, pulse 75, respiratory rate 24, blood pressure 129/86, oxygen saturation 92% on mechanical ventilation. GENERAL: Intubated, sedated, no acute distress. LUNGS: Decreased breath sounds. No wheezes or crackles. CARDIOVASCULAR: Normal rate, regular rhythm. Normal S1 and S2. ABDOMEN: Soft, nontender. EXTREMITIES: 2+ pitting edema. CARDIAC MEDICATIONS 1. Furosemide 40 mg IV b.i.d. 2. Metoprolol tartrate 25 mg p.o. b.i.d. 3. Aspirin 81 mg p.o. daily. 4. Atorvastatin 40 mg p.o. nightly. 5. Enoxaparin 40 mg subcutaneous daily. LABS: WBC 17.33, hemoglobin 9.9, hematocrit 31.8, platelets 260. Sodium 157, potassium 3.7, chloride 108, CO2 39, BUN 41, creatinine 0.71. TELEMETRY: Normal sinus rhythm. IMPRESSION 1. Acute respiratory failure, currently on mechanical ventilation. 2. Community-acquired pneumonia versus pulmonary edema. 3. Dnk-PZ-pngxiqcaz myocardial infarction. 4. Worsening leukocytosis. 5. History of rheumatoid arthritis. 6. Coagulase-negative staphylococcus bacteremia suspected by Infectious Disease to be contamination. 7. Raeann albicans on sputum culture. RECOMMENDATIONS: Continue diuretics. Patient's creatinine is stable and she remains volume-overloaded. Replete electrolytes. Wean mechanical ventilation per Pulmonary. Antibiotics per Infectious Disease. Defer further evaluation of worsening leukocytosis to ID. Once patient's respiratory status improves and she has recovered from her acute illness, she will need ischemic evaluation with cardiac catheterization. Thank you for this consult. We will continue to follow. Job#: [id number] SYDNEE
[2017-11-18] MEDS ORDERED: SODIUM CHLORIDE 0.9% 250ML 250 ML ONE (17:28)
[2017-11-18] MEDS: ATORVASTATIN 40 MG TAB PO SCH (21:53)
[2017-11-19] VITALS (45 sets, daily range): BP systolic 129–188; BP diastolic 50–114
[2017-11-19] MEDS ORDERED: ONDANSETRON HCL INJ 2 MG/ML VIAL IV PRN (01:00)
[2017-11-19] MEDS: ALBUTEROL SULF 0.083% NEB SOLN 3 ML NEB NEB SCH ×4 (01:20→18:55)
[2017-11-19] MEDS: IPRATROPIUM BROMIDE 0.02% 2.5 ML NEB NEB SCH ×4 (01:20→18:55)
[2017-11-19 05:13] LABS: BASOPHILS % 0.1 % (0.0-1.0); HEMATOCRIT 34.2 % (34.2-44.1); HEMOGLOBIN 10.6 g/dL (12.0-16.0); LYMPHOCYTES # (AUTO) 1.1 (1.0-3.2); LYMPHOCYTES % 5.6 % (18.0-39.1); MEAN CORPUSCULAR HEMOGLOBIN 30.6 pg (28-32); MEAN CORPUSCULAR VOLUME 98.8 fL (81-99); MONOCYTES # (AUTO) 0.6 (0.2-0.8); MONOCYTES % 2.9 % (4.4-11.3); NEUTROPHILS # (AUTO) 18.3 (2.1-6.9); NEUTROPHILS % 90.8 % (38.7-80.0); PLATELET COUNT 217 x10e3/uL (140-360); RED BLOOD COUNT 3.46 x10e6/uL (3.6-5.1); RED CELL DISTRIBUTION WIDTH 15.1 % (11.7-14.4)
[2017-11-19] MEDS: DEXMEDETOMIDINE HCL 200 MCG in SODIUM CHLORIDE 0.9% 50ML 48 ML IV PRN ×2 (05:26→20:34)
[2017-11-19 05:30] LABS: ANION GAP 12.9 mmol/L (8-16); BLOOD UREA NITROGEN 39 mg/dL (7-26); BUN/CREATININE RATIO 52 (6-25); CALCIUM 9.3 mg/dL (8.4-10.2); CHLORIDE 101 mmol/L (98-107); CREATININE, SERUM 0.75 mg/dL (0.57-1.11); EST GLOMERULAR FILTRATION RATE > 60 ML/MIN (60-); GLUCOSE 127 mg/dL (74-118); SODIUM 154 mmol/L (136-145)
[2017-11-19] MEDS: METHYLPREDNISOLONE SOD SUCC 40 MG/ML VIAL IV SCH ×2 (05:31→16:45)
[2017-11-19] MEDS: PIPER-TAZ 3.375 GM 50 ML IV SCH ×3 (05:31→21:00)
[2017-11-19] MEDS: GENTAMICIN SULFATE 0.3% OP 5 ML BTL OP SCH ×5 (05:31→21:07)
[2017-11-19 05:34] LABS: CARBON DIOXIDE 43 mmol/L (22-29); POTASSIUM 2.9 mmol/L (3.5-5.1)
--- NOTE | 2017-11-19 06:26 | Diagnostic Imaging Report ---
EXAMINATION: CHEST SINGLE (PORTABLE) INDICATION: Intubated COMPARISON: 11/18/2017 FINDINGS: TUBES and LINES: Endotracheal tube, NG tube and left upper extremity PICC line are in good position. Tip of the PICC line is visualized at the level of the SVC. LUNGS: Lungs are not well inflated. There are bibasilar atelectasis. There is evidence of stable interlobular septi thickening and alveolar opacities. PLEURA: Trace of bilateral pleural effusions. HEART AND MEDIASTINUM: Cardiac size is mildly enlarged. There are atherosclerotic calcifications within the aorta. BONES AND SOFT TISSUES: No acute osseous lesion. Soft tissues are unremarkable. UPPER ABDOMEN: No free air under the diaphragm. IMPRESSION: Stable alveolar and interstitial edema. Signed by: Dr. Silver Schwartz M.D. on 11/19/2017 6:23 AM
[2017-11-19] MEDS ORDERED: POTASSIUM CHLORIDE 20MEQ/15ML UDC NG STA (06:42)
[2017-11-19] MEDS ORDERED: POTASSIUM CHLORIDE 20MEQ/100ML 300 ML IV ONE (06:45)
[2017-11-19] MEDS ORDERED: SODIUM CHLORIDE 0.9% 250ML 250 ML ONE (08:58)
[2017-11-19] MEDS: FAMOTIDINE 20 MG/2 ML VIAL IV SCH ×2 (09:00→16:44)
[2017-11-19] MEDS: FUROSEMIDE INJ 10 MG/ML 4 ML VIAL IV SCH (09:00)
[2017-11-19] MEDS: METOPROLOL TARTRATE 25 MG TAB PO SCH ×2 (09:00→16:45)
[2017-11-19] MEDS: VANCOMYCIN 750MG/NS 150ML IVPB 150 ML IV SCH (09:00)
[2017-11-19] MEDS: GABAPENTIN 300 MG CAP NG SCH ×2 (09:00→16:45)
[2017-11-19] MEDS: ASPIRIN 81 MG ENTERIC COATED PO SCH (09:00)
[2017-11-19] MEDS ORDERED: ACETAZOLAMIDE SODIUM 500 MG/VIAL IV NR (09:15)
[2017-11-19] MEDS: NYSTATIN 15 GM POWDER UD BTL TOP SCH (09:30)
--- NOTE | 2017-11-19 11:12 | Progress Note ---
DATE: November 19, 2017 CARDIOLOGY PROGRESS NOTE SUBJECTIVE: Patient is without any complaints. She is off sedation this morning, and she is communicating. She has no complaints. Continues to be intubated. OBJECTIVE VITAL SIGNS: Temperature 98.4, pulse 68, respiratory rate 22. Blood pressure 139/71, oxygen saturation 93% on mechanical ventilator. CARDIOVASCULAR MEDICATIONS 1. Lovenox 40 mg subcutaneous daily. 2. Aspirin 81 p.o. daily. 3. Furosemide 20 mg IV daily. LABS: WBC 20.16, hemoglobin 10.6, hematocrit 34.2, platelets 217. Sodium 154, potassium 2.9, BUN 39, creatinine 0.75, calcium 9.3. Chest x-ray from this morning with stable alveolar and interstitial edema. TELEMETRY: Sinus rhythm with frequent PACs. PHYSICAL EXAMINATION GENERAL: Awake and oriented. Continues to be intubated. LUNGS: Decreased breath sounds throughout with scattered rhonchi. CARDIOVASCULAR: Regular rate and rhythm, normal S1, S2. ABDOMEN: Soft, nontender. LOWER EXTREMITIES: There is 2+ nonpitting edema bilaterally. IMPRESSION 1. Acute respiratory failure secondary to mechanical ventilation. 2. Community-acquired pneumonia versus pulmonary edema. 3. Zue-BL-djyzjvfjw myocardial infarction. 4. Worsening leukocytosis. 5. History of rheumatoid arthritis. 6. Coagulase-negative staphylococcal bacteremia, suspected by infectious disease to be contamination. 7. Raeann albicans on sputum culture. RECOMMENDATIONS: Continue the above-listed cardiac medications. Electrolytes will be replaced today, potassium included. Pulmonary weaning off mechanical ventilation. Antimicrobial therapy per infectious disease. Will defer management of leukocytosis to ID. Once the patient has recovered from acute illness, consider cardiac catheterization. Maintain on telemetry for now and continue the above-listed medications. Dictated by Debbie Watts NP. Job#: [id number]
[2017-11-19 11:33] LABS: ABG PH 7.58 (7.31-7.41)
[2017-11-19 11:34] LABS: ABG PCO2 49 mmHg (41-51)
[2017-11-19 11:35] LABS: ABG HCO3 45 mmol/L (23-28); ABG PO2 47 mmHg (80-105)
[2017-11-19] MEDS ORDERED: VANCOMYCIN 250MG/5ML ORAL SOLN PO SCH (12:00)
[2017-11-19] MEDS: VANCOMYCIN 250MG/5ML ORAL SOLN PO SCH ×3 (12:02→23:11)
[2017-11-19] MEDS: ENOXAPARIN SOD INJ 40 MG/0.4 ML SYR SC SCH (16:45)
[2017-11-19] MEDS: ATORVASTATIN 40 MG TAB PO SCH (21:00)
[2017-11-20] VITALS (35 sets, daily range): BP systolic 109–144; BP diastolic 49–76
[2017-11-20] MEDS: DEXMEDETOMIDINE HCL 200 MCG in SODIUM CHLORIDE 0.9% 50ML 48 ML IV PRN ×4 (00:24→21:03)
[2017-11-20] MEDS: ALBUTEROL SULF 0.083% NEB SOLN 3 ML NEB NEB SCH ×4 (02:05→19:30)
[2017-11-20] MEDS: IPRATROPIUM BROMIDE 0.02% 2.5 ML NEB NEB SCH ×4 (02:05→19:30)
[2017-11-20] MEDS: PIPER-TAZ 3.375 GM 50 ML IV SCH ×3 (05:37→21:02)
[2017-11-20] MEDS: VANCOMYCIN 250MG/5ML ORAL SOLN PO SCH ×4 (05:38→23:29)
[2017-11-20] MEDS: GENTAMICIN SULFATE 0.3% OP 5 ML BTL OP SCH ×5 (05:38→21:02)
[2017-11-20 06:36] LABS: BASOPHILS % 0.1 % (0.0-1.0); HEMATOCRIT 35.2 % (34.2-44.1); LYMPHOCYTES # (AUTO) 1.3 (1.0-3.2); LYMPHOCYTES % 4.4 % (18.0-39.1); MEAN CORPUSCULAR HEMOGLOBIN 30.9 pg (28-32); MEAN CORPUSCULAR HGB CONC 31.3 g/dL (31-35); MEAN CORPUSCULAR VOLUME 98.9 fL (81-99); MONOCYTES # (AUTO) 1.1 (0.2-0.8); MONOCYTES % 3.6 % (4.4-11.3); NEUTROPHILS # (AUTO) 26.5 (2.1-6.9); NEUTROPHILS % 91.1 % (38.7-80.0); PLATELET COUNT 264 x10e3/uL (140-360); RED BLOOD COUNT 3.56 x10e6/uL (3.6-5.1); RED CELL DISTRIBUTION WIDTH 15.6 % (11.7-14.4)
[2017-11-20] MEDS: FENTANYL CITRATE INJ 2,000 MCG in SODIUM CHLORIDE 0.9% 250ML 210 ML IV PRN (06:46)
[2017-11-20] MEDS ORDERED: FUROSEMIDE INJ 10 MG/ML 4 ML VIAL IV SCH (09:00)
[2017-11-20] MEDS: NYSTATIN 15 GM POWDER UD BTL TOP SCH (09:30)
[2017-11-20 09:50] LABS: BLOOD UREA NITROGEN 43 mg/dL (7-26); BUN/CREATININE RATIO 52 (6-25); CALCIUM 9.5 mg/dL (8.4-10.2); CARBON DIOXIDE 34 mmol/L (22-29); CHLORIDE 103 mmol/L (98-107); CREATININE, SERUM 0.82 mg/dL (0.57-1.11); EST GLOMERULAR FILTRATION RATE > 60 ML/MIN (60-); GLUCOSE 153 mg/dL (74-118); SODIUM 152 mmol/L (136-145)
--- NOTE | 2017-11-20 09:54 | Diagnostic Imaging Report ---
EXAM: Single AP view of the chest (Portable). COMPARISON: 11/19/2017 INDICATION: \S\repositioned ett \[id number] \S\[id number] FINDINGS: Single portable AP view of the chest. The visualized bones and soft tissues, cardiac silhouette , pleura appear unchanged. IMPRESSION: 1. Lines/tubes: Interval mild advancement of the endotracheal tube with tip now 3.6 cm above the linda. Stable position of the NG/OG-tube. Left PICC remains unchanged. 2. Worsening bilateral pulmonary edema. Signed by: Dr. Dori Dai M.D. on 11/20/2017 9:51 AM
[2017-11-20] MEDS: GABAPENTIN 300 MG CAP NG SCH ×2 (10:36→16:40)
[2017-11-20] MEDS: METOPROLOL TARTRATE 25 MG TAB PO SCH ×2 (10:36→16:40)
[2017-11-20] MEDS: ASPIRIN 81 MG ENTERIC COATED PO SCH (10:36)
[2017-11-20] MEDS: METHYLPREDNISOLONE SOD SUCC 40 MG/ML VIAL IV SCH ×2 (10:36→16:40)
[2017-11-20] MEDS: FAMOTIDINE 20 MG/2 ML VIAL IV SCH ×2 (10:36→16:40)
--- NOTE | 2017-11-20 10:38 | Progress Note ---
DATE: November 20, 2017 CARDIOLOGY PROGRESS NOTE SUBJECTIVE: Complains of back discomfort. Otherwise, no any other complaints. OBJECTIVE VITAL SIGNS: Temperature 99.0, pulse 73, respiratory rate 22. Blood pressure 131/61, oxygen saturation 92% on mechanical ventilator. CARDIOVASCULAR MEDICATIONS 1. Metoprolol 25 mg p.o. b.i.d. 2. Lovenox 40 mg subcutaneous daily. 3. Aspirin 81 p.o. daily. 4. Furosemide 20 mg IV daily. LABS: WBC 29.07, hemoglobin 11.0, hematocrit 35.2, platelets 264. Sodium 154, potassium 2.9, BUN 39, creatinine 0.75, GFR greater than 60. PHYSICAL EXAMINATION GENERAL: Alert and oriented times 2, resting comfortably in bed. Daughter at the bedside. Does not appear to be in any acute distress. CARDIOVASCULAR: Regular rate and rhythm, normal S1 and S2. LUNGS: Diminished breath sounds throughout with scattered rhonchi. ABDOMEN: Soft, nontender. LOWER EXTREMITIES: There is 2+ nonpitting edema bilaterally. TELEMETRY: Sinus rhythm with frequent PACs. IMPRESSION 1. Acute respiratory failure secondary to mechanical ventilation. 2. Community-acquired pneumonia versus pulmonary edema. 3. Eku-ID-[id number] myocardial infarction. 4. Worsening leukocytosis. 5. History of rheumatoid arthritis. 6. Coagulase-negative staphylococcal bacteremia suspected by infectious disease to be contamination. 7. Raeann albicans on sputum culture. RECOMMENDATIONS: Continue the above-listed cardiac medications. Electrolytes replaced today, potassium included. Continue trial of weaning off mechanical ventilation per anesthesia attending's directions. Continue antimicrobial therapy per infectious disease. Once the patient has recovered from this acute illness, will consider cardiac catheterization at that time. Continue to monitor very closely. Dictated by Debbie Watts NP. Job#: [id number]
[2017-11-20 11:00] LABS: LYMPHOCYTES % (MANUAL) 3 % (19-48); NEUTROPHILS % (MANUAL) 97 % (40-74); PLATELET ESTIMATE ADEQUATE; PLATELET MORPHOLOGY COMMENT NORMAL; RBC MORPHOLOGY COMMENT NORMAL
[2017-11-20] MEDS: DEXTROSE 5% 1,000 ML IV SCH (14:08)
[2017-11-20] MEDS: ENOXAPARIN SOD INJ 40 MG/0.4 ML SYR SC SCH (16:40)
[2017-11-20] MEDS: ATORVASTATIN 40 MG TAB PO SCH (20:50)
[2017-11-21] VITALS (17 sets, daily range): BP systolic 108–137; BP diastolic 51–69
[2017-11-21] MEDS: IPRATROPIUM BROMIDE 0.02% 2.5 ML NEB NEB SCH ×4 (00:30→19:35)
[2017-11-21] MEDS: ALBUTEROL SULF 0.083% NEB SOLN 3 ML NEB NEB SCH ×4 (00:30→19:35)
[2017-11-21] MEDS: DEXMEDETOMIDINE HCL 200 MCG in SODIUM CHLORIDE 0.9% 50ML 48 ML IV PRN ×6 (01:00→22:00)
[2017-11-21] MEDS: VANCOMYCIN 250MG/5ML ORAL SOLN PO SCH ×3 (05:28→17:35)
[2017-11-21] MEDS: GENTAMICIN SULFATE 0.3% OP 5 ML BTL OP SCH ×5 (05:28→22:55)
[2017-11-21] MEDS: DEXTROSE 5% 1,000 ML IV SCH ×2 (05:28→15:35)
[2017-11-21] MEDS: PIPER-TAZ 3.375 GM 50 ML IV SCH (05:28)
[2017-11-21 05:36] LABS: BASOPHILS % 0.1 % (0.0-1.0); EOSINOPHILS # (AUTO) 0.3 (0.0-0.4); EOSINOPHILS % 1.7 % (0.0-6.0); HEMATOCRIT 30.8 % (34.2-44.1); HEMOGLOBIN 9.6 g/dL (12.0-16.0); LYMPHOCYTES # (AUTO) 1.5 (1.0-3.2); LYMPHOCYTES % 8.2 % (18.0-39.1); MEAN CORPUSCULAR HGB CONC 31.2 g/dL (31-35); MEAN CORPUSCULAR VOLUME 99.4 fL (81-99); MONOCYTES # (AUTO) 0.7 (0.2-0.8); MONOCYTES % 3.9 % (4.4-11.3); NEUTROPHILS # (AUTO) 15.5 (2.1-6.9); NEUTROPHILS % 85.5 % (38.7-80.0); PLATELET COUNT 176 x10e3/uL (140-360); RED CELL DISTRIBUTION WIDTH 15.7 % (11.7-14.4)
[2017-11-21 05:56] LABS: ALANINE AMINOTRANSFERASE 36 IU/L (0-55); ALBUMIN 2.4 g/dL (3.5-5.0); ALBUMIN/GLOBULIN RATIO 0.8 (0.8-2.0); ALKALINE PHOSPHATASE 62 IU/L (40-150); ANION GAP 13.1 mmol/L (8-16); BLOOD UREA NITROGEN 38 mg/dL (7-26); BUN/CREATININE RATIO 55 (6-25); CARBON DIOXIDE 34 mmol/L (22-29); CHLORIDE 103 mmol/L (98-107); CREATININE, SERUM 0.69 mg/dL (0.57-1.11); EST GLOMERULAR FILTRATION RATE > 60 ML/MIN (60-); GLUCOSE 128 mg/dL (74-118); POTASSIUM 3.1 mmol/L (3.5-5.1); SODIUM 147 mmol/L (136-145)
--- NOTE | 2017-11-21 07:00 | Diagnostic Imaging Report ---
EXAMINATION: CHEST SINGLE (PORTABLE) INDICATION: A RDS. COMPARISON: 11/20/2017 FINDINGS: TUBES and LINES: Endotracheal, NG tube and left upper extremity PICC line are stable. LUNGS: Lungs are not well inflated. There are bibasilar atelectasis. There is perihilar interstitial opacities, consistent with interstitial edema. PLEURA: No pleural effusion or pneumothorax. HEART AND MEDIASTINUM: Cardiac size is mildly enlarged. There are atherosclerotic calcifications within the aorta. There is evidence of pneumomediastinum with lucency around the cardiac silhouette, pulmonary artery BONES AND SOFT TISSUES: No acute osseous lesion. Subcutaneous emphysema is unchanged. UPPER ABDOMEN: No free air under the diaphragm. IMPRESSION: 1. Pneumomediastinum tracking into the lower neck. 2. This finding may be related to excessive positive pressure ventilation or 3. ARDS. Signed by: Dr. Silver Schwartz M.D. on 11/21/2017 6:57 AM
[2017-11-21] MEDS ORDERED: POTASSIUM CHLORIDE 20MEQ/100ML 0 ML ONE (08:13)
--- NOTE | 2017-11-21 08:14 | Consultation ---
DATE OF CONSULTATION: November 21, 2017 HOSPITAL CONSULTATION HISTORY OF PRESENT ILLNESS: I was kindly asked to see this 82-year-old woman for evaluation of tracheostomy tube placement. Patient has required prolonged ventilator support and is unable to be successful weaned. It is anticipated she will continue to need ventilator support and subsequent pulmonary toilet. Her history of present illness, past medical history and past medical history were reviewed in detail in the chart. PHYSICAL EXAMINATION: There is no abnormal neck anatomy. ASSESSMENT: Respiratory failure. PLAN: Tracheostomy. Job#: [id number] DELMI
[2017-11-21] MEDS: POTASSIUM CHLORIDE 20MEQ/15ML UDC NG PRN (08:30)
[2017-11-21] MEDS: FAMOTIDINE 20 MG/2 ML VIAL IV SCH ×2 (09:50→17:35)
[2017-11-21] MEDS: NYSTATIN 15 GM POWDER UD BTL TOP SCH (09:50)
[2017-11-21] MEDS: ASPIRIN 81 MG ENTERIC COATED PO SCH (09:50)
[2017-11-21] MEDS: METOPROLOL TARTRATE 25 MG TAB PO SCH ×2 (09:50→17:35)
[2017-11-21] MEDS: METHYLPREDNISOLONE SOD SUCC 40 MG/ML VIAL IV SCH ×2 (09:50→17:35)
[2017-11-21] MEDS: GABAPENTIN 300 MG CAP NG SCH ×2 (09:50→17:35)
[2017-11-21 11:20] LABS: ABG HCO3 36 mmol/L (23-28); ABG PCO2 42 mmHg (41-51); ABG PH 7.54 (7.31-7.41); ABG PO2 57 mmHg (80-105)
--- NOTE | 2017-11-21 12:52 | Progress Note ---
DATE: SUBJECTIVE: No acute events overnight. Patient intubated and sedated but appears comfortable. No significant distress. OBJECTIVE VITAL SIGNS: Pulse 67, respiratory rate 28, blood pressure 141/68. Oxygen saturation 96%. Patient is mechanically ventilated with FiO2 of 30%. CARDIOVASCULAR MEDICATIONS 1. Metoprolol tartrate 25 mg p.o. b.i.d. 2. Aspirin 81 mg p.o. daily. 3. Atorvastatin 40 mg p.o. q. bedtime. LABS: White blood count 18, hemoglobin 9.6, hematocrit 30.8, platelet count 176. Chemistry-potassium 3.1, BUN is 38, creatinine is 0.69. IMAGING: Chest x-ray reviewed. There is pneumomediastinum tracking into the lower back with bibasilar atelectasis and peripheral interstitial opacities consistent with infection or interstitial edema. Echo reviewed. Echo shows left ventricular hypertrophy with left ventricular ejection fraction of 65% with no regional wall motion abnormalities and no significant valvular lesions. IMPRESSION 1. Acute respiratory failure secondary to pneumonia versus pulmonary edema. 2. Acute diastolic heart failure exacerbation. 3. Non-ST elevation myocardial infarction. RECOMMENDATIONS: Continue the above-listed cardiac medications. Electrolytes repleted today including potassium. Recommend potassium level be maintained above 3.5. Patient remains on mechanical ventilation being managed by the pulmonary team. Patient to undergo tracheostomy in the OR tomorrow. Patient will be at moderate cardiovascular event risk during this low to intermittent risk surgery. Currently we do not recommend any further risk stratification or procedures as this risk is non-modifiable in this acutely ill patient. Once the patient has recovered from this acute illness, will consider cardiac catheterization given the patient's age and risk factors and peak troponin of 1.7 in the setting of acute respiratory failure. We will continue to monitor and follow closely. Telemetry reviewed without any significant arrhythmias noted. Job#: [id number] DARLENE
[2017-11-21] MEDS ORDERED: DEXMEDETOMIDINE HCL 200 MCG in SODIUM CHLORIDE 0.9% 50ML 48 ML IV PRN (16:00)
[2017-11-21] MEDS ORDERED: CHOLESTYRAMINE 4 GM PACKET NG PRN (21:00)
[2017-11-21] MEDS ORDERED: LORAZEPAM INJ 2 MG/ML VIAL ONE (21:13)
[2017-11-21] MEDS: LORAZEPAM INJ 2 MG/ML VIAL IV PRN (21:14)
[2017-11-21] MEDS: ATORVASTATIN 40 MG TAB PO SCH (22:55)
[2017-11-22] VITALS (37 sets, daily range): BP systolic 92–149; BP diastolic 35–72
[2017-11-22] MEDS: DEXMEDETOMIDINE HCL 200 MCG in SODIUM CHLORIDE 0.9% 50ML 48 ML IV PRN ×5 (00:05→22:50)
[2017-11-22] MEDS: VANCOMYCIN 250MG/5ML ORAL SOLN PO SCH ×5 (00:30→23:54)
[2017-11-22] MEDS: ALBUTEROL SULF 0.083% NEB SOLN 3 ML NEB NEB SCH ×4 (01:15→18:30)
[2017-11-22] MEDS: IPRATROPIUM BROMIDE 0.02% 2.5 ML NEB NEB SCH ×4 (01:15→18:30)
[2017-11-22] MEDS: NYSTATIN 15 GM POWDER UD BTL TOP SCH (01:30)
[2017-11-22] MEDS: TRIAMCINOLONE ACET 0.1% CREAM 15 GM TUBE TOP SCH ×3 (01:30→18:38)
[2017-11-22 05:50] LABS: BASOPHILS % 0.1 % (0.0-1.0); EOSINOPHILS # (AUTO) 0.2 (0.0-0.4); EOSINOPHILS % 1.4 % (0.0-6.0); HEMATOCRIT 26.8 % (34.2-44.1); HEMOGLOBIN 8.4 g/dL (12.0-16.0); LYMPHOCYTES # (AUTO) 1.1 (1.0-3.2); LYMPHOCYTES % 8.6 % (18.0-39.1); MEAN CORPUSCULAR HEMOGLOBIN 30.4 pg (28-32); MEAN CORPUSCULAR HGB CONC 31.3 g/dL (31-35); MEAN CORPUSCULAR VOLUME 97.1 fL (81-99); MONOCYTES # (AUTO) 0.5 (0.2-0.8); MONOCYTES % 3.8 % (4.4-11.3); NEUTROPHILS # (AUTO) 11.2 (2.1-6.9); NEUTROPHILS % 85.3 % (38.7-80.0); PLATELET COUNT 141 x10e3/uL (140-360); RED BLOOD COUNT 2.76 x10e6/uL (3.6-5.1); RED CELL DISTRIBUTION WIDTH 14.9 % (11.7-14.4)
[2017-11-22] MEDS: GENTAMICIN SULFATE 0.3% OP 5 ML BTL OP SCH ×5 (06:04→20:22)
[2017-11-22 06:15] LABS: ALANINE AMINOTRANSFERASE 44 IU/L (0-55); ALBUMIN 2.2 g/dL (3.5-5.0); ALBUMIN/GLOBULIN RATIO 0.8 (0.8-2.0); ALKALINE PHOSPHATASE 57 IU/L (40-150); ANION GAP 10.1 mmol/L (8-16); BLOOD UREA NITROGEN 27 mg/dL (7-26); BUN/CREATININE RATIO 44 (6-25); CALCIUM 8.5 mg/dL (8.4-10.2); CARBON DIOXIDE 32 mmol/L (22-29); CHLORIDE 100 mmol/L (98-107); CREATININE, SERUM 0.62 mg/dL (0.57-1.11); EST GLOMERULAR FILTRATION RATE > 60 ML/MIN (60-); GLUCOSE 147 mg/dL (74-118); POTASSIUM 3.1 mmol/L (3.5-5.1); SODIUM 139 mmol/L (136-145)
[2017-11-22] MEDS: POTASSIUM CHLORIDE 20MEQ/15ML UDC NG PRN (06:27)
--- NOTE | 2017-11-22 06:31 | Diagnostic Imaging Report ---
EXAM: CHEST SINGLE (PORTABLE), AP 1 view INDICATION: ARDS COMPARISON: AP view of the chest November 21, 2017 FINDINGS: LINES/TUBES: Stable position endotracheal tube and nasal/orogastric tube and left approach PICC. LUNGS: Persistent bilateral airspace opacities. PLEURA: Possible bilateral pleural effusions. HEART AND MEDIASTINUM: Persistent findings of pneumomediastinum. BONES AND SOFT TISSUES: No acute findings. IMPRESSION: No significant interval change. Signed by: Dr. Deysi Riley M.D. on 11/22/2017 6:28 AM
[2017-11-22] MEDS: METOPROLOL TARTRATE 25 MG TAB PO SCH ×2 (09:00→17:00)
[2017-11-22] MEDS: ASPIRIN 81 MG ENTERIC COATED PO SCH (09:00)
[2017-11-22] MEDS: GABAPENTIN 300 MG CAP NG SCH ×2 (09:00→18:01)
[2017-11-22] MEDS ORDERED: LIDOCAINE 1% W/EPINEPHRINE 20 ML VIAL ONE (10:44)
[2017-11-22] MEDS: METHYLPREDNISOLONE SOD SUCC 40 MG/ML VIAL IV SCH ×2 (10:48→18:01)
[2017-11-22] MEDS: FAMOTIDINE 20 MG/2 ML VIAL IV SCH ×2 (10:48→18:00)
[2017-11-22] MEDS ORDERED: SODIUM CHLORIDE 0.9% 250ML 250 ML IV ONE (11:00)
[2017-11-22] MEDS: PIPER-TAZ 3.375 GM 50 ML IV SCH ×2 (11:05→18:01)
[2017-11-22 11:16] LABS: ABG PCO2 38 mmHg (41-51); ABG PH 7.53 (7.31-7.41); ABG PO2 48 mmHg (80-105)
[2017-11-22 11:17] LABS: ABG HCO3 32 mmol/L (23-28)
--- NOTE | 2017-11-22 12:59 | Operative Report ---
DATE OF PROCEDURE: November 22, 2017 PREOPERATIVE DIAGNOSIS: Respiratory failure. POSTOPERATIVE DIAGNOSIS: Respiratory failure. TITLE OF PROCEDURE: Tracheostomy. ANESTHESIA: General. ESTIMATED BLOOD LOSS: Less than 10 mL. COMPLICATIONS: None. OPERATIVE FINDINGS: Normal neck anatomy. OPERATIVE INDICATIONS: This 82-year-old woman presented with a history of respiratory failure and prolonged intubation. She was unable to be successfully weaned. It is anticipated she will continue to need ventilator support and subsequent pulmonary toilet. The risks, benefits and alternatives to surgical intervention were discussed with the patient and her family. They gave their informed consent to have this procedure performed. NARRATIVE REPORT: After 1st obtaining adequate general anesthesia through a previously placed endotracheal tube, the area of incision was infiltrated with 1% lidocaine with epinephrine 1:100,000. Total of 8 mL was used. The patient was then prepped and draped in the usual fashion. A 3-cm incision was then made 2 cm above the sternal notch and carried through the subcutaneous tissues with the Bovie puller through. The strap muscles were identified and divided in the midline and reflected laterally with the Gelpi retractor. The thyroid isthmus was transected using the Bovie puller through. The thyroid was then incorporated into the Gelpi retractor and reflected laterally. The cricoid was identified. A cricoid hook was placed. An incision was made between the 2nd and 3rd tracheal rings with a #15 blade. An inferiorly-based trapezoidal flap was created with curved Paz scissors. The endotracheal tube was partially withdrawn. A #8 Shiley [employer] tracheostomy tube was then easily inserted through the tracheostomy site. CO2 was confirmed in the exhaled gases. The tracheostomy tube was sutured in place with 2-0 nylon. Trach ties were applied. The patient was in satisfactory condition at the termination of the procedure. Job#: [id number]
[2017-11-22 13:39] LABS: % IRON SATURATION 24 % (15-50); IRON 53 ug/dL (50-170); TOTAL IRON BINDING CAPACITY 221 ug/dL (261-478); TRANSFERRIN 158 mg/dL (180-382)
[2017-11-22] MEDS: FENTANYL CITRATE INJ 2,000 MCG in SODIUM CHLORIDE 0.9% 250ML 210 ML IV PRN ×2 (14:33→22:00)
[2017-11-22] MEDS: LORAZEPAM INJ 2 MG/ML VIAL IV PRN ×2 (14:45)
--- NOTE | 2017-11-22 15:13 | Diagnostic Imaging Report ---
PROCEDURE: CHEST SINGLE (PORTABLE) COMPARISON: 11/22/2017 at 0542. INDICATIONS: POST TRACHEOSTOMY FINDINGS: See conclusion CONCLUSION: Interval tracheostomy, with the tip of the tracheostomy tube projecting over the trachea at the thoracic inlet. Enteric tube and left upper extremity PICC are unchanged. When accounting for differences in technique, no appreciable interval change in the appearance of the heart or lungs. Persistent pneumomediastinum and bilateral nonspecific airspace opacities which may reflect edema or infection. Dictated by: Lavelle Holland M.D. on 11/22/2017 at 14:03 Electronically approved by: Lavelle Holland M.D. on 11/22/2017 at 14:03
--- NOTE | 2017-11-22 16:06 | Progress Note ---
DATE: November 22, 2017 CARDIOLOGY PROGRESS NOTE SUBJECTIVE: Patient is sedated. Overnight, no major events except she went to the OR and had a tracheostomy done this morning which was uneventful. OBJECTIVE VITAL SIGNS: Temperature 97.3, pulse 75, respiratory rate 29, blood pressure 132/65, saturation 94% on mechanical ventilation, 80% FIO2. PHYSICAL EXAMINATION GENERAL: Patient is sedated and sleeping, not arousable to verbal or tactile stimuli but does respond to pain. CARDIOVASCULAR: Regular rate and rhythm. No murmur, rubs or gallops. LUNGS: There are mechanical ventilation sounds as well as patchy areas of rhonchi heard bilaterally. ABDOMEN: Soft, nontender and nondistended. EXTREMITIES: There is nonpitting edema noted bilaterally, with palpable distal pulses. No ulcers or wounds. CARDIOVASCULAR MEDICATIONS 1. Atorvastatin 40 mg at bedtime. 2. Metoprolol tartrate 25 mg twice a day. 3. Aspirin 81 mg daily is being held due to recent surgery. LABS: White count 13.0, hemoglobin 8.4, hematocrit 26.8, platelet count 141. Chemistry: Sodium 139, potassium 3.1 which has been repleted, chloride 100, carbon dioxide 32, BUN 27, creatinine 0.6 and glucose 147. IMAGING REPORTS: Reviewed. Chest x-ray shows stable pneumomediastinum as noted on yesterday's exam and bilateral patchy air-space opacities largely unchanged from previous exams. TELEMETRY: Telemetry data reviewed, only notable for sinus rhythm with PACs. ASSESSMENT AND PLAN/PROBLEM LIST 1. Respiratory distress. 2. Hypoxia. 3. Sepsis. 4. Chronic obstructive pulmonary disease. 5. Elevated troponins. 6. Multifocal pneumonia. PLAN: Patient is doing well after her surgery, hemodynamically stable with no electrical instability. Will continue to monitor her closely for any perioperative cardiovascular events. Recommend continuation of her current cardiovascular medical regimen as noted above. Please resume aspirin 81 mg daily when acceptable from a surgical standpoint. Once patient recovers from her critical illness and pulmonary issues, will consider doing a cardiac catheterization given her positive troponins previously during her respiratory failure and sepsis. Job#: [id number] EV
[2017-11-22] MEDS ORDERED: ROCURONIUM BROMIDE 10 MG/ML 5ML VIAL ONE (17:40)
[2017-11-22] MEDS ORDERED: SEVOFLURANE INHAL SOLN 250 ML PEN BTL ONE (17:40)
[2017-11-22] MEDS ORDERED: MIDAZOLAM HCL 5MG/ML 2ML VIAL ONE (17:59)
[2017-11-22] MEDS ORDERED: FENTANYL CITRATE/PF 100MCG/2 ML INJ ONE (17:59)
[2017-11-22] MEDS: ATORVASTATIN 40 MG TAB PO SCH (20:22)
[2017-11-22] MEDS: DEXTROSE 5%/0.45% SOD CHL 1,000 ML IV SCH (23:55)
[2017-11-23] VITALS (89 sets, daily range): BP systolic 83–187; BP diastolic 39–88
[2017-11-23] MEDS: PIPER-TAZ 3.375 GM 50 ML IV SCH (01:26)
[2017-11-23] MEDS: IPRATROPIUM BROMIDE 0.02% 2.5 ML NEB NEB SCH ×4 (02:05→18:30)
[2017-11-23] MEDS: ALBUTEROL SULF 0.083% NEB SOLN 3 ML NEB NEB SCH ×4 (02:05→18:30)
[2017-11-23] MEDS: GENTAMICIN SULFATE 0.3% OP 5 ML BTL OP SCH ×5 (05:13→22:12)
[2017-11-23] MEDS: VANCOMYCIN 250MG/5ML ORAL SOLN PO SCH ×3 (05:13→17:14)
--- NOTE | 2017-11-23 06:06 | Diagnostic Imaging Report ---
EXAM: CHEST SINGLE (PORTABLE), AP 1 view INDICATION: Tracheostomy COMPARISON: AP view of the chest November 22 2017 FINDINGS: LINES/TUBES: Interval removal of endotracheal tube and placement of tracheostomy tube. Stable nasal/orogastric tube and left approach PICC. LUNGS: Stable diffuse bilateral airspace opacities. PLEURA: Possible bilateral pleural effusions. HEART AND MEDIASTINUM: Persistent pneumomediastinum. BONES AND SOFT TISSUES: No acute findings. IMPRESSION: Interval tracheostomy tube placement. Persistent pneumomediastinum. Signed by: Dr. Deysi Riley M.D. on 11/23/2017 6:03 AM
[2017-11-23 06:09] LABS: BASOPHILS % 0.1 % (0.0-1.0); EOSINOPHILS # (AUTO) 0.1 (0.0-0.4); EOSINOPHILS % 0.4 % (0.0-6.0); HEMATOCRIT 33.6 % (34.2-44.1); HEMOGLOBIN 10.8 g/dL (12.0-16.0); LYMPHOCYTES # (AUTO) 0.8 (1.0-3.2); LYMPHOCYTES % 3.7 % (18.0-39.1); MEAN CORPUSCULAR HEMOGLOBIN 30.6 pg (28-32); MEAN CORPUSCULAR HGB CONC 32.1 g/dL (31-35); MEAN CORPUSCULAR VOLUME 95.2 fL (81-99); MONOCYTES # (AUTO) 0.9 (0.2-0.8); MONOCYTES % 4.1 % (4.4-11.3); NEUTROPHILS % 90.7 % (38.7-80.0); PLATELET COUNT 198 x10e3/uL (140-360); RED BLOOD COUNT 3.53 x10e6/uL (3.6-5.1); RED CELL DISTRIBUTION WIDTH 15.9 % (11.7-14.4)
[2017-11-23 06:23] LABS: INR 1.23; PROTHROMBIN TIME 14.6 seconds (11.9-14.5)
[2017-11-23] MEDS: LORAZEPAM INJ 2 MG/ML VIAL IV PRN (06:32)
[2017-11-23 06:33] LABS: ANION GAP 12.4 mmol/L (8-16); BLOOD UREA NITROGEN 24 mg/dL (7-26); BUN/CREATININE RATIO 39 (6-25); CALCIUM 8.3 mg/dL (8.4-10.2); CARBON DIOXIDE 28 mmol/L (22-29); CHLORIDE 101 mmol/L (98-107); CREATININE, SERUM 0.61 mg/dL (0.57-1.11); EST GLOMERULAR FILTRATION RATE > 60 ML/MIN (60-); GLUCOSE 101 mg/dL (74-118); POTASSIUM 3.4 mmol/L (3.5-5.1); SODIUM 138 mmol/L (136-145)
[2017-11-23] MEDS ORDERED: MIDAZOLAM HCL 2 MG/2 ML VIAL ONE ×2 (06:51→06:52)
[2017-11-23] MEDS ORDERED: SODIUM CHLORIDE 0.9% 50ML 50 ML ONE (06:53)
[2017-11-23] MEDS: FENTANYL CITRATE INJ 2,000 MCG in SODIUM CHLORIDE 0.9% 250ML 210 ML IV PRN (07:03)
[2017-11-23] MEDS: MIDAZOLAM HCL 25 MG in SODIUM CHLORIDE 0.9% 50ML 45 ML IV PRN ×2 (07:15→22:48)
[2017-11-23] MEDS: METHYLPREDNISOLONE SOD SUCC 40 MG/ML VIAL IV SCH ×2 (08:30→17:13)
[2017-11-23] MEDS: FAMOTIDINE 20 MG/2 ML VIAL IV SCH ×2 (08:30→17:13)
[2017-11-23] MEDS: ASPIRIN 81 MG ENTERIC COATED PO SCH (08:33)
[2017-11-23] MEDS: GABAPENTIN 300 MG CAP NG SCH ×2 (08:33→17:13)
[2017-11-23] MEDS: METOPROLOL TARTRATE 25 MG TAB PO SCH ×3 (08:35→17:00)
[2017-11-23] MEDS: TRIAMCINOLONE ACET 0.1% CREAM 15 GM TUBE TOP SCH ×2 (09:00→17:14)
[2017-11-23] MEDS: BALSAM PERU/CASTOR OIL 60 GM OINT...G. TP SCH ×2 (09:00→17:14)
[2017-11-23] MEDS: NYSTATIN 15 GM POWDER UD BTL TOP SCH (09:00)
[2017-11-23] MEDS: DEXTROSE 5%/0.45% SOD CHL 1,000 ML IV SCH ×2 (09:30→22:47)
--- NOTE | 2017-11-23 13:55 | Progress Note ---
DATE: November 23, 2017 CARDIOLOGY PROGRESS NOTE SUBJECTIVE AND OVERNIGHT EVENTS: No acute events overnight. Patient underwent tracheostomy yesterday and due to restlessness her sedation dose was increased, which resulted in lowering of her blood pressure. Therefore, the metoprolol was held. Otherwise no acute events. REVIEW OF SYSTEMS: Unable to perform a review of systems as patient is heavily sedated and on mechanical ventilation. OBJECTIVE VITAL SIGNS: Temperature 97.5, heart rate 56, respiratory rate 18, blood pressure 97/53, oxygen saturation 92% on mechanical ventilation with 80% FIO2. GENERAL: Patient is on mechanical ventilation through a tracheostomy and heavily sedated. CARDIOVASCULAR: Unable to palpate PMI. Regular rate and rhythm. S1 and S2. No murmurs, rubs or gallops heard. Has palpable carotid pulses bilaterally, faint but palpable pedal pulses, and has 2+ anasarca in all the dependent areas. RESPIRATORY: As noted, patient is on mechanical ventilation through a tracheostomy. Lungs are clear to auscultation other than some patchy areas of rhonchi bilaterally. ABDOMEN: Soft, with no masses palpated. Obese; so, could not assess for hepatosplenomegaly. NEUROLOGIC AND PSYCH: Patient is heavily sedated, responds to mild painful stimuli. MEDICATIONS: Patient is on aspirin 81 mg daily as well as atorvastatin 40 mg at bedtime. Her metoprolol is being held due to low blood pressure. IMAGING: All the imaging reviewed, notable for stable pneumomediastinum on chest x-ray. TELEMETRY: Telemetry data reviewed, shows sinus rhythm with PACs. No other new cardiac studies to review. ASSESSMENT 1. Respiratory distress. 2. Hypoxia. 3. Sepsis. 4. Chronic obstructive pulmonary disease. 5. Elevated troponins. 6. Multifocal pneumonia. 7. Respiratory failure requiring chronic mechanical ventilation. PLAN: Patient is overall stable after a tracheostomy yesterday, no cardiovascular or electrical events. Will continue to monitor her closely in the perioperative period. Continue her cardiac medications as noted above. Thank you for this consult. Will continue to follow. Job#: [id number] SYDNEE
--- NOTE | 2017-11-23 13:55 | Progress Note ---
DATE: Ms. Ma remains in the intensive care unit on a trach. The patient had the trach on 11/22/2017. Doing about the same. Still confused. PHYSICAL EXAMINATION GENERAL: She is sedated, comfortable. VITALS: Stable. Afebrile. HEENT: Nonicteric. NECK: Supple. CHEST: A few crackles. COR: S1 and S2. No murmur. ABDOMEN: Soft. IMPRESSION 1. Acute respiratory failure, now with a tracheostomy. 2. Community-acquired pneumonia on admission, better. 3. Jpf-EP-exjgjnyxs myocardial infarction. 4. History of rheumatoid arthritis. 5. Acute respiratory distress syndrome. The patient is on Solu-Medrol 20 b.i.d. She is also on oral vancomycin and Zosyn. Her leukocytosis is about the same, 20.89. Hemoglobin 10.8. Platelets 198. I think we can discontinue the antibiotic. Continue ARDS treatment. The patient is at risk for recurrent infection and pneumonia. Will follow. Job#: [id number]
[2017-11-23] MEDS: DEXMEDETOMIDINE HCL 200 MCG in SODIUM CHLORIDE 0.9% 50ML 48 ML IV PRN (19:41)
[2017-11-23] MEDS: ATORVASTATIN 40 MG TAB PO SCH (20:49)
[2017-11-24] VITALS (66 sets, daily range): BP systolic 82–165; BP diastolic 38–95
[2017-11-24] MEDS: VANCOMYCIN 250MG/5ML ORAL SOLN PO SCH ×3 (00:24→12:35)
[2017-11-24] MEDS: DEXMEDETOMIDINE HCL 200 MCG in SODIUM CHLORIDE 0.9% 50ML 48 ML IV PRN ×2 (00:32→04:19)
[2017-11-24] MEDS: ALBUTEROL SULF 0.083% NEB SOLN 3 ML NEB NEB SCH ×3 (02:30→13:48)
[2017-11-24] MEDS: IPRATROPIUM BROMIDE 0.02% 2.5 ML NEB NEB SCH ×3 (02:30→13:48)
[2017-11-24 04:53] LABS: BASOPHILS % 0.1 % (0.0-1.0); EOSINOPHILS # (AUTO) 0.2 (0.0-0.4); EOSINOPHILS % 1.8 % (0.0-6.0); HEMATOCRIT 26.6 % (34.2-44.1); HEMOGLOBIN 8.5 g/dL (12.0-16.0); LYMPHOCYTES # (AUTO) 0.6 (1.0-3.2); LYMPHOCYTES % 5.1 % (18.0-39.1); MEAN CORPUSCULAR HEMOGLOBIN 30.7 pg (28-32); MONOCYTES # (AUTO) 0.5 (0.2-0.8); MONOCYTES % 3.9 % (4.4-11.3); NEUTROPHILS # (AUTO) 11.1 (2.1-6.9); NEUTROPHILS % 88.5 % (38.7-80.0); PLATELET COUNT 138 x10e3/uL (140-360); RED BLOOD COUNT 2.77 x10e6/uL (3.6-5.1); RED CELL DISTRIBUTION WIDTH 15.9 % (11.7-14.4)
[2017-11-24] MEDS: GENTAMICIN SULFATE 0.3% OP 5 ML BTL OP SCH ×3 (05:01→14:00)
[2017-11-24 05:17] LABS: ANION GAP 11.4 mmol/L (8-16); BLOOD UREA NITROGEN 27 mg/dL (7-26); BUN/CREATININE RATIO 44 (6-25); CALCIUM 7.6 mg/dL (8.4-10.2); CARBON DIOXIDE 25 mmol/L (22-29); CHLORIDE 104 mmol/L (98-107); CREATININE, SERUM 0.61 mg/dL (0.57-1.11); EST GLOMERULAR FILTRATION RATE > 60 ML/MIN (60-); GLUCOSE 250 mg/dL (74-118); POTASSIUM 3.4 mmol/L (3.5-5.1); SODIUM 137 mmol/L (136-145)
[2017-11-24] MEDS: MIDAZOLAM HCL 25 MG in SODIUM CHLORIDE 0.9% 50ML 45 ML IV PRN (05:23)
--- NOTE | 2017-11-24 05:46 | Diagnostic Imaging Report ---
EXAM: CHEST SINGLE (PORTABLE), AP 1 view INDICATION: ARDS COMPARISON: AP view of the chest November 23, 2017 FINDINGS: LINES/TUBES: Stable tracheostomy, nasogastric tube and left approach PICC LUNGS: Stable bilateral airspace opacities PLEURA: Indeterminate for small pleural effusions. HEART AND MEDIASTINUM: Stable position BONES AND SOFT TISSUES: No acute findings. IMPRESSION: No interval change Signed by: Dr. Deysi Riley M.D. on 11/24/2017 5:42 AM
[2017-11-24] MEDS: NYSTATIN 15 GM POWDER UD BTL TOP SCH (08:14)
[2017-11-24] MEDS: BALSAM PERU/CASTOR OIL 60 GM OINT...G. TP SCH ×2 (08:14→16:42)
[2017-11-24] MEDS: METOPROLOL TARTRATE 25 MG TAB PO SCH ×2 (08:14→16:42)
[2017-11-24] MEDS: TRIAMCINOLONE ACET 0.1% CREAM 15 GM TUBE TOP SCH ×2 (08:14→16:42)
[2017-11-24] MEDS: METHYLPREDNISOLONE SOD SUCC 40 MG/ML VIAL IV SCH (08:19)
[2017-11-24] MEDS: ASPIRIN 81 MG ENTERIC COATED PO SCH (08:19)
[2017-11-24] MEDS: FAMOTIDINE 20 MG/2 ML VIAL IV SCH ×2 (08:19→16:41)
[2017-11-24] MEDS: GABAPENTIN 300 MG CAP NG SCH ×2 (08:19→16:42)
[2017-11-24] MEDS ORDERED: LORAZEPAM 1 MG TAB PO SCH (14:00)
[2017-11-24] MEDS ORDERED: PROPOFOL IV EMULSION 10MG/ML 100 ML IV PRN (14:00)
--- NOTE | 2017-11-24 16:54 | Progress Note ---
DATE: November 24, 2017 CARDIOLOGY PROGRESS NOTE SUBJECTIVE: Patient underwent tracheostomy yesterday and has done okay overnight. Remains sedated and complains about discomfort at the trach site. Otherwise, no major events. REVIEW OF SYSTEMS: Could not be performed as patient is sedated. OBJECTIVE VITAL SIGNS: Heart rate 66, respiratory rate 24, blood pressure 114/59, saturations 92% on mechanical ventilation with FiO2 of 90%. PHYSICAL EXAMINATION GENERAL: Patient is on mechanical ventilation through tracheostomy and sedated. CARDIOVASCULAR: Unable to palpate TMI. Regular heart sounds, normal S1 and S2. No murmurs, rubs, or gallops heard. Has palpable carotid pulses bilaterally. Faint pedal pulses bilaterally and has 2+ anasarca in all dependent areas, unchanged from previous. RESPIRATORY: On mechanical ventilation through tracheostomy. Some patchy areas of rhonchi heard bilaterally. ABDOMEN: Soft with no masses noted. Obese. Could not assess for hepatosplenomegaly. NEURO AND PSYCH: Patient is sedated. Responds to mild painful stimuli. MEDICATIONS 1. Aspirin 81 mg daily. 2. Atorvastatin 40 mg at bedtime. 3. Metoprolol 25 mg twice a day. IMAGING: All imaging was reviewed. No notable changes from yesterday. TELEMETRY: Telemetry data reviewed. Shows no major arrhythmias. No other new cardiac studies to review. ASSESSMENT 1. Respiratory distress. 2. Hypoxia. 3. Sepsis. 4. Chronic obstructive pulmonary disease. 5. Elevated troponin. 6. Multifocal pneumonia. 7. Respiratory failure requiring chronic mechanical ventilation. PLAN: Overall patient is stable from a cardiovascular perspective. No major events in the perioperative period. We will continue to monitor closely for any perioperative cardiovascular events. Continue her cardiac medications as noted above. Thank you for this consult. We will continue to follow. Job#: [id number] DARLENE
[2017-11-24] MEDS ORDERED: METHYLPREDNISOLONE SOD SUCC 40 MG/ML VIAL IV SCH (17:00)
[2017-11-24] MEDS ORDERED: LORAZEPAM INJ 2 MG/ML VIAL IV PRN (18:00)
[2017-11-24] MEDS ORDERED: MORPHINE SULFATE 2 MG/ML SYR IV PRN (18:00)
== END 2017-11-24 19:04 | disposition expired | DRG 4 ==
LOC: ER 19:10 → ERHOLD 20:53 → ICU 21:43
PROVIDERS: ADMIT Internal Medicine; ATTEND Internal Medicine
PROC: 5A09357 Assistance with Respiratory Ventilation, Less than 24 Consecutive Hours, Continuous Positive Airway Pressure (ICD-10-PCS; 2017-11-06)
PROC: 5A1955Z Respiratory Ventilation, Greater than 96 Consecutive Hours (ICD-10-PCS; 2017-11-07)
PROC: 0BH17EZ Insertion of Endotracheal Airway into Trachea, Via Natural or Artificial Opening (ICD-10-PCS; 2017-11-07)
PROC: 02HV33Z Insertion of Infusion Device into Superior Vena Cava, Percutaneous Approach (ICD-10-PCS; 2017-11-07)
PROC: 0BH17EZ Insertion of Endotracheal Airway into Trachea, Via Natural or Artificial Opening (ICD-10-PCS; 2017-11-09)
PROC: 02HV33Z Insertion of Infusion Device into Superior Vena Cava, Percutaneous Approach (ICD-10-PCS; 2017-11-18)
PROC: 30243N1 Transfusion of Nonautologous Red Blood Cells into Central Vein, Percutaneous Approach (ICD-10-PCS; 2017-11-22)
PROC: 0B110F4 Bypass Trachea to Cutaneous with Tracheostomy Device, Open Approach (ICD-10-PCS; principal; 2017-11-22 11:00)
DX: A41.9 Sepsis, unspecified organism (principal); J18.9 Pneumonia, unspecified organism; J96.00 Acute respiratory failure, unspecified whether with hypoxia or hypercapnia; I21.4 Non-ST elevation (NSTEMI) myocardial infarction; I50.31 Acute diastolic (congestive) heart failure; J45.41 Moderate persistent asthma with (acute) exacerbation; J44.1 Chronic obstructive pulmonary disease with (acute) exacerbation; E87.3 Alkalosis; E87.0 Hyperosmolality and hypernatremia; B37.89 Other sites of candidiasis; Z51.5 Encounter for palliative care; Z66 Do not resuscitate; M06.9 Rheumatoid arthritis, unspecified; G62.9 Polyneuropathy, unspecified; M19.90 Unspecified osteoarthritis, unspecified site; E66.9 Obesity, unspecified; Z68.33 Body mass index [BMI] 33.0-33.9, adult; D64.9 Anemia, unspecified; F03.90 Unspecified dementia, unspecified severity, without behavioral disturbance, psychotic disturbance, mood disturbance, and anxiety; Z72.0 Tobacco use; J84.89 Other specified interstitial pulmonary diseases; R19.7 Diarrhea, unspecified; R53.81 Other malaise; Z79.82 Long term (current) use of aspirin
CPT/HCPCS: 36415; 36430; 36569; 36600; 51700; 71045; 71260; 80048; 80053; 80061; 80202; 81001; 82533; 82550; 82553; 82805; 82948; 83540; 83605; 83735; 83880; 84466; 84484; 85025; 85610; 85730; 86850; 86900; 86920; 87040; 87070; 87071; 87205; 87449; 87493; 93005; 93306; 94002; 94003; 94640; 94644; 94660; 96361; 96365; 96366; 96367; 99284; J0330; J0456; J1644; J1650; J1720; J1940; J2060; J2250; J2405; J2543; J2765; J2920; J3370; J3480; J7030; J7042; J7050; J7070; P9016; Q9967